=== PATIENT | male | born 1945 | race Caucasian/White ===

== ENCOUNTER 2016-12-27 08:42 | Outpatient (CLI) | payer MEDICARE, OTHER | END 2016-12-27 08:43 | disposition home or self-care (01) | DX: G47.33 Obstructive sleep apnea (adult) (pediatric) (principal) | CPT/HCPCS: 99214; G0463 ==

== ENCOUNTER 2017-03-24 13:53 | Outpatient (CLI) | payer OTHER, MEDICARE ==
--- NOTE | 2017-03-24 15:59 | MRI Report ---
EXAM: RIGHT KNEE MRI WITHOUT CONTRAST EXAM DATE: 03/24/2017 03:27 PM. CLINICAL HISTORY: RIGHT KNEE INJURY. COMPARISON: None. TECHNIQUE: Multiplanar, multisequence T1-weighted and fluid-sensitive sequences of the knee without c ontrast. Other: None. FINDINGS: Bones: No fractures or subluxations. Reactive marrow edema in the medial femoral condyle, medial tibi al plateau at the tibial attachment site of the PCL. No bone lesions. 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 Grade 3 degeneration with thinn ing and irregular surface in the trochlea and lateral femoral condyle. Medial Meniscus: A radial tear about 5 mm in width in the posterior horn of the medial meniscus near the meniscal root resulting in partial extrusion of the body of the meniscus from the joint. Lateral Meniscus: The lateral meniscus is intact. Cruciate Ligaments: Grade 2 sprain of the posterior cruciate ligament with diffusely mildly increased signal and mild thickening, without definite tear or laxity. The anterior cruciate ligament is intac t. Collateral Ligaments: The medial collateral and lateral collateral ligamentous structures are intact. Tendons: Mild patellar tendinopathy with mild increased signal proximally, without tear or laxity. Th e quadriceps, semimembranosus, and popliteus tendons are unremarkable. Musculature: No edema or fatty atrophy. Other: Mild effusion. A small popliteal cyst without rupture. No loose bodies. The medial and latera l retinacula, patellofemoral ligaments and iliotibial band are intact. No bursitis. There is a lobula mabel septated ganglion cyst deep to the popliteal vessels measuring 2.1 cm in width, 4.2 cm in AP dime nsion and 1.9 cm in height. The subcutaneous tissues and fat pads are unremarkable. IMPRESSION: 1. A radial tear about 5 mm in width in the posterior horn of the medial meniscus near the meniscal r oot. 2. Grade 2 sprain of the posterior cruciate ligament without definite tear or laxity. Reactive marrow edema in the medial tibial plateau at the tibial attachment site of the PCL. 3. Mild patellar tendinopathy without tear or laxity. 4. a lobulated septated ganglion cyst deep to the popliteal vessels measuring 2.1 cm in width, 4.2 cm in AP dimension and 1.9 cm in height. [facility] MUSCULOSKELETAL RADIOLOGY SECTION Referring Provider Line: [phone] SITE ID: [id number]
== END 2017-03-24 13:54 | disposition home or self-care (01) ==
LOC: DI 13:53
DX: S83.241A Other tear of medial meniscus, current injury, right knee, initial encounter (principal); S83.521A Sprain of posterior cruciate ligament of right knee, initial encounter; M67.461 Ganglion, right knee

== ENCOUNTER 2018-03-13 10:17 | Outpatient (CLI) | payer MEDICARE, OTHER | END 2018-03-13 10:18 | disposition home or self-care (01) | LOC: SC 10:17 | PROVIDERS: ATTEND Nurse Practitioner Family | DX: G47.33 Obstructive sleep apnea (adult) (pediatric) (principal); R06.00 Dyspnea, unspecified | CPT/HCPCS: 99214; G0463; 99212 ==

== ENCOUNTER 2018-05-23 14:48 | Emergency (ER) | payer MEDICARE, OTHER ==
[2018-05-23] MEDS ORDERED: HYDROmorphone 1 MG/ML CARPUJECT IVP STA (15:17)
--- NOTE | 2018-05-23 15:20 | ED Physician Documentation ---
PD HPI UPPER EXT INJURY - Stated complaint Stated Complaint: LF SHOULDER INJ - Chief complaint Chief Complaint: Trauma Ext - History obtained from History obtained from: Patient - History of Present Illness Location: Left, Shoulder Type of injury: Fall Where injury occurred: Other (dock) Timing - onset: How many hours ago (1) Timing - duration: Hours (1) Timing - details: Abrupt onset Pain level max: 8 Pain level now: 8 Improved by: Rest, Ice, Immobilization Worsened by: Moving, Palpating Associated symptoms: No: Weakness, Numbness, Tingling, Swelling Contributing factors: No: Anticoagulated Recently seen: Not recently seen - Additonal information Additional information: did not strike his head. no LOC. no vomiting. Review of Systems Ten Systems: 10 systems reviewed and negative Constitutional: denies: Fever, Chills Ears: denies: Ear pain Nose: denies: Rhinorrhea / runny nose, Congestion Throat: denies: Sore throat Cardiac: denies: Chest pain / pressure Respiratory: denies: Cough GI: denies: Nausea, Vomiting, Diarrhea Skin: denies: Rash Musculoskeletal: denies: Neck pain, Back pain Neurologic: denies: Focal weakness, Numbness, Headache, Head injury, LOC PD PAST MEDICAL HISTORY - Past Medical History Cardiovascular: Hypertension, High cholesterol Respiratory: CPAP use : Benign prostate hypertrophy Musculoskeletal: Chronic back pain - Present Medications Home Medications: Ambulatory Orders Medication Instructions Recorded Confirmed Atorvastatin Calcium [Lipitor] mg PO 04/09/15 04/09/15 Celecoxib [CeleBREX] 04/09/15 04/09/15 Rehmannia 8 tab ORAL QPM 04/09/15 04/09/15 Telmisartan [Micardis] mg PO 04/09/15 04/09/15 Triamcinolone Acetonide [Nasacort] 10.8 ml NS QPM 04/09/15 04/09/15 Hydrocodone/Acetaminophen 1 - 2 each PO Q6H PRN #14 tablet 05/23/18 [Hydrocodon-Acetaminophen 5-325] - Allergies Allergies/Adverse Reactions: Allergies Allergy/AdvReac Type Severity Reaction Status Date / Time No Known Drug Allergies Allergy Verified 04/09/15 12:02 - Social History Does the pt smoke?: No Smoking Status: Never smoker Does the pt drink ETOH?: No Does the pt have substance abuse?: No PD ED PE NORMAL - Vitals Vital signs reviewed: Yes - General General: Alert and oriented X 3, No acute distress - HEENT HEENT: Atraumatic, PERRL, Moist mucous membranes - Neck Neck: Supple, no meningeal sign, No bony TTP - Cardiac Cardiac: RRR - Respiratory Respiratory: No respiratory distress, Clear bilaterally - Back Back: No spinal TTP - Derm Derm: Warm and dry - Extremities Extremities: Other (L shoulder - TTP about the glenohumeral joint. NVI. deformity noted. 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, No motor deficit, No sensory deficit Eye Opening: Spontaneous Motor: Obeys Commands Verbal: Oriented GCS Score: 15 - Psych Psych: Normal mood, Normal affect Results - Vitals Vitals: Vital Signs - 24 hr 05/23/18 05/23/18 05/23/18 14:59 15:51 16:00 Temperature 36.4 C L Heart Rate 94 86 Respiratory 20 18 Rate Blood Pressure 165/100 H 165/100 H O2 Saturation 98 97 05/23/18 05/23/18 16:11 16:30 Temperature Heart Rate 63 78 Respiratory 16 16 Rate Blood Pressure 121/65 128/87 H O2 Saturation 97 96 Oxygen O2 Source Room air - Rads (name of study) L shoulder xray Radiology: Prelim report reviewed, EMP read contemporaneously, See rad report (inferior shoulder dislocation) post reduction L shoulder Radiology: Prelim report reviewed, EMP read contemporaneously, See rad report (succesful reduction) Procedures - Reduction Body part reduced: Left, Shoulder Fracture or dislocation: Dislocation Anesthesia: Dilaudid Shoulder reduction technique: Other (FARES) Reduction aftercare: NV intact, Xray confirms reduction, Alignment improved, Sling, Patient tolerated well PD MEDICAL DECISION MAKING - ED course Complexity details: reviewed results, re-evaluated patient, considered differential, d/w patient ED course: Patient is a 72-year-old male who presents to the emergency department after fall onto the left shoulder. Has a left shoulder dislocation. This was reduced successfully in the emergency department. Patient tolerated well. Neurovascularly intact including the axillary nerve. Placed in a sling for comfort we will have him follow-up with orthopedics for further evaluation. Patient counseled regarding signs and symptoms for which I believe and urgent re-evaluation would be necessary. Patient with good understanding of and agreement to plan and is comfortable going home at this time This document was made in part using voice recognition software. While efforts are made to proofread this document, sound alike and grammatical errors may occur. - Sepsis Event Vital Signs: Vital Signs - 24 hr 05/23/18 05/23/18 05/23/18 14:59 15:51 16:00 Temperature 36.4 C L Heart Rate 94 86 Respiratory 20 18 Rate Blood Pressure 165/100 H 165/100 H O2 Saturation 98 97 05/23/18 05/23/18 16:11 16:30 Temperature Heart Rate 63 78 Respiratory 16 16 Rate Blood Pressure 121/65 128/87 H O2 Saturation 97 96 Oxygen O2 Source Room air Departure - Departure Disposition: 01 Home, Self Care Clinical Impression: Dislocation of shoulder, left, closed Qualifiers: Encounter type: initial encounter Qualified Code(s): S43.005A - Unspecified dislocation of left shoulder joint, initial encounter Condition: Good Instructions: ED Dislocation Shoulder Redu Follow-Up: IZZY FELIPE DO [Primary Care Provider] - [facility] [Provider Group] - Within 1 week Prescriptions: Hydrocodone/Acetaminophen [Hydrocodon-Acetaminophen 5-325] 1 - 2 each PO Q6H PRN #14 tablet PRN Reason: pain Comments: Wear the sling as much as possible for the next week. Follow-up with orthopedics for further evaluation and care. Do not drink alcohol or drive while on narcotic pain medicine. Note that many narcotic pain relievers also contain tylenol/acetaminophen. Please ensure that your total dose of acetaminophen from all sources does not exceed 3 grams (3000mg) per day. You may constipated on this medication, take a stool softener such as "Colace" twice a day while you are on it. Also recommend a johu-hvw-[id number] laxative such as senna or MiraLAX any day that you do not have a bowel movement. If you received narcotic pain medication in the emergency department, do not drive or operate machinery for the next 24 hours. Discharge Date/Time: 05/23/18 16:58
[2018-05-23] MEDS ORDERED: ONDANSETRON 4 MG/2 ML VIAL IVP STA (16:06)
--- NOTE | 2018-05-23 16:40 | XRAY Report ---
Reason: post reduction Procedure Date: 05/23/2018 Accession Number: [id number] / [id number] Procedure: XR - Shoulder 2 View LT CPT Code: FULL RESULT: EXAM: LEFT SHOULDER RADIOGRAPHY EXAM DATE: 05/23/2018 04:24 PM. CLINICAL HISTORY: Post reduction. COMPARISON: Shoulder 3 view left 05/23/2018 3:21 PM. TECHNIQUE: 3 views. FINDINGS: Bones: Normal. No fracture or bone lesion. Joints: Bones now in anatomic alignment. Moderate degenerative changes at the AC joint. Soft tissues: The visualized hemithorax is unremarkable. No soft tissue swelling. IMPRESSION: Successful shoulder reduction. [facility]
[2018-05-23 16:58] VITALS: BP 128/87
--- NOTE | 2018-05-24 08:02 | XRAY Report ---
Reason: FALL, LEFT SHOULDER PAIN Procedure Date: 05/23/2018 Accession Number: [id number] / [id number] Procedure: XR - Shoulder 2 View LT CPT Code: FULL RESULT: IMPRESSION: Anterior inferior dislocation of the humeral head at the left glenohumeral joint. No definite acute fracture seen. Reevaluate for fracture on the postreduction x-ray. See above. [facility]
== END 2018-05-23 16:58 | disposition home or self-care (01) ==
LOC: ED 14:48
DX: S43.005A Unspecified dislocation of left shoulder joint, initial encounter (principal); W17.89XA Other fall from one level to another, initial encounter; Y92.62 Dock or shipyard as the place of occurrence of the external cause; I10 Essential (primary) hypertension; E78.00 Pure hypercholesterolemia, unspecified
CPT/HCPCS: 23650; 73030; 96374; 99283; 99284; J1170

== ENCOUNTER 2019-01-12 22:30 | Emergency (ER) | payer MEDICARE, OTHER ==
[2019-01-12] MEDS ORDERED: LIDOCAINE 2% URO-JET 5 ML SYRINGE UR STA (22:40)
--- NOTE | 2019-01-12 22:53 | ED Physician Documentation ---
History of Present Illness - Stated complaint Stated Complaint: MALE - Chief complaint Chief Complaint: Abd Pain - History obtained from History obtained from: Patient, Family - History of Present Illness Timing: Today Pain level max: 8 Pain level now: 8 - Additonal information Additional information: Patient had right knee surgery a few days ago at [facility]. A catheter was placed for noted significant hematuria. He is awaiting a urology referral. States the catheter stopped draining a few hours ago. Nothing makes it better or worse Review of Systems Constitutional: denies: Fever, Chills GI: denies: Vomiting Musculoskeletal: denies: Neck pain, Back pain Neurologic: denies: Headache PD PAST MEDICAL HISTORY - Past Medical History Cardiovascular: Hypertension, High cholesterol Respiratory: CPAP use : Benign prostate hypertrophy Musculoskeletal: Chronic back pain - Past Surgical History Past Surgical History: Yes General: Appendectomy Ortho: Carpal Tunnel surgery, Spine surgery - Present Medications Home Medications: Ambulatory Orders Medication Instructions Recorded Confirmed Atorvastatin Calcium [Lipitor] mg PO 04/09/15 04/09/15 Celecoxib [CeleBREX] 04/09/15 04/09/15 Rehmannia 8 tab ORAL QPM 04/09/15 04/09/15 Telmisartan [Micardis] mg PO 04/09/15 04/09/15 Triamcinolone Acetonide [Nasacort] 10.8 ml NS QPM 04/09/15 04/09/15 Hydrocodone/Acetaminophen 1 - 2 each PO Q6H PRN #14 tablet 05/23/18 [Hydrocodon-Acetaminophen 5-325] - Allergies Allergies/Adverse Reactions: Allergies Allergy/AdvReac Type Severity Reaction Status Date / Time No Known Drug Allergies Allergy Verified 01/12/19 22:38 - Social History Does the pt smoke?: No Smoking Status: Never smoker Does the pt drink ETOH?: No Does the pt have substance abuse?: No - Immunizations Immunizations are current?: Yes - POLST Patient has POLST: No PD ED PE NORMAL - Vitals Vital signs reviewed: Yes - General General: Alert and oriented X 3, No acute distress - HEENT HEENT: Moist mucous membranes - Neck Neck: Supple, no meningeal sign - Cardiac Cardiac: RRR - Respiratory Respiratory: No respiratory distress, Clear bilaterally - Abdomen Abdomen: Soft, Other (Tender to palpation suprapubic) - Derm Derm: Warm and dry - Neuro Neuro: Alert and oriented X 3 - Psych Psych: Normal mood, Normal affect Results - Vitals Vitals: Vital Signs - 24 hr 01/12/19 01/12/19 22:35 23:58 Temperature 36.2 C L Heart Rate 123 H 111 H Respiratory 16 16 Rate Blood Pressure 140/87 H 153/106 H O2 Saturation 94 98 Oxygen O2 Source Room air PD MEDICAL DECISION MAKING - ED course Complexity details: considered differential, d/w patient ED course: Patient with a clogged Horton catheter. The catheter was removed a new catheter placed which clogged immediately. A coud catheter was then introduced, a liter of urine was drained. A 18 Frisian catheter was then introduced irrigated with 50 mL's of saline which all drained back easily. Patient will go home with this catheter in place. We will follow-up with urology. Patient counseled regarding signs and symptoms for which I believe and urgent re-evaluation would be necessary. Patient with good understanding of and agreement to plan and is comfortable going home at this time This document was made in part using voice recognition software. While efforts are made to proofread this document, sound alike and grammatical errors may occur. Departure - Departure Disposition: 01 Home, Self Care Clinical Impression: Obstructed Horton catheter Qualifiers: Encounter type: initial encounter Qualified Code(s): T83.091A - Other mechanical complication of indwelling urethral catheter, initial encounter Condition: Good Instructions: ED Catheter Care Horton Follow-Up: [facility] [Provider Group] [facility] [Provider Group] Comments: Return if you worsen. Follow up with urology for further care. Discharge Date/Time: 01/13/19 00:00
[2019-01-13] VITALS: BP 153/106
== END 2019-01-13 | disposition home or self-care (01) ==
LOC: ED 22:30
DX: T83.091A Other mechanical complication of indwelling urethral catheter, initial encounter (principal); Y84.6 Urinary catheterization as the cause of abnormal reaction of the patient, or of later complication, without mention of misadventure at the time of the procedure; I10 Essential (primary) hypertension
CPT/HCPCS: 51703; 99283

== ENCOUNTER 2019-01-13 09:57 | Emergency (ER) | payer MEDICARE, OTHER ==
[2019-01-13] MEDS ORDERED: LIDOCAINE 2% URO-JET 5 ML SYRINGE UR STA (10:11)
--- NOTE | 2019-01-13 13:48 | ED Physician Documentation ---
PD HPI MALE - Stated complaint Stated Complaint: MALE /CATHETER ISSUE - Chief complaint Chief Complaint: General - History obtained from History obtained from: Patient, Family - History of Present Illness Timing - onset: Last night Timing - duration: Hours Timing - details: Gradual onset, Still present Associated symptoms: Horton problem Similar symptoms before: Diagnosis (urinary retention) Recently seen: Surgery - Additional information Additional information: 73-year-old male has had a right total knee replacement done at [facility] last week. Following his procedure he had urinary retention and required placement of a Horton catheter. This was done with great difficulty and required placement of a 14 British coud. The catheter was draining until yesterday evening and when they had no output from it that came to the hospital here and last night we were able to place a 14 coud and drained the bladder and following that a second catheter was placed and the patient has not had drainage from that second catheter. Review of Systems Constitutional: denies: Fever Eyes: denies: Decreased vision Ears: denies: Ear pain Nose: denies: Congestion Throat: denies: Sore throat Cardiac: denies: Chest pain / pressure, Palpitations Respiratory: denies: Dyspnea, Cough GI: denies: Abdominal Pain, Nausea, Vomiting : reports: Horton Problem (not draining feels bladder is full) PD PAST MEDICAL HISTORY - Past Medical History Cardiovascular: Hypertension, High cholesterol Respiratory: CPAP use : Benign prostate hypertrophy Musculoskeletal: Chronic back pain - Past Surgical History Past Surgical History: Yes General: Appendectomy Ortho: Knee replacement, Carpal Tunnel surgery, Spine surgery - Present Medications Home Medications: Ambulatory Orders Medication Instructions Recorded Confirmed Atorvastatin Calcium [Lipitor] mg PO 04/09/15 04/09/15 Celecoxib [CeleBREX] 04/09/15 04/09/15 Rehmannia 8 tab ORAL QPM 04/09/15 04/09/15 Telmisartan [Micardis] mg PO 04/09/15 04/09/15 Triamcinolone Acetonide [Nasacort] 10.8 ml NS QPM 04/09/15 04/09/15 Hydrocodone/Acetaminophen 1 - 2 each PO Q6H PRN #14 tablet 05/23/18 [Hydrocodon-Acetaminophen 5-325] - Allergies Allergies/Adverse Reactions: Allergies Allergy/AdvReac Type Severity Reaction Status Date / Time No Known Drug Allergies Allergy Verified 05/18/19 22:38 - Social History Does the pt smoke?: No Smoking Status: Never smoker Does the pt drink ETOH?: No Does the pt have substance abuse?: No - Immunizations Immunizations are current?: Yes - POLST Patient has POLST: No PD ED PE NORMAL - Vitals Vital signs reviewed: Yes (hypertensive ) - General General: Alert and oriented X 3, No acute distress, Well developed/nourished - HEENT HEENT: Atraumatic, PERRL, EOMI - Respiratory Respiratory: No respiratory distress - Abdomen Abdomen: Normal bowel sounds, Soft, Non tender, Other (suprapubic tenderness and fullness is not exquisit but present. ) - Derm Derm: Normal color, Warm and dry, No rash - Extremities Extremities: No deformity. No: Other (There is a dressing over the right knee anteriorly without surrounding erythema or swelling. There is no calf tenderness to palpation. 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, No motor deficit, No sensory deficit, Normal speech Eye Opening: Spontaneous Motor: Obeys Commands Verbal: Oriented GCS Score: 15 - Psych Psych: Normal mood, Normal affect Results - Vitals Vitals: Vital Signs - 24 hr 01/13/19 01/13/19 09:59 13:00 Temperature 36.3 C L Heart Rate 95 78 Respiratory 18 18 Rate Blood Pressure 141/71 H 127/75 O2 Saturation 94 91 L Oxygen O2 Source Room air PD MEDICAL DECISION MAKING - ED course Complexity details: reviewed old records, reviewed results, re-evaluated patient, considered differential, d/w patient, d/w family ED course: 73-year-old male with acute urinary retention has a clot present at the opening of the bladder on bedside ultrasound. We are not able to pass a catheter past this and despite multiple attempts and attempts at irrigation we are still not able to drain the bladder. Urology is consulted in the case they are unable to take the patient at [facility] secondary to no available beds. Dr. Adame at [facility] in [place] the urologist recommends transfer of the patient to the emergency department there for evaluation and treatment.The patient will go private auto to [facility] ED. Departure - Departure Disposition: 01 Home, Self Care Clinical Impression: Obstructed Horton catheter Qualifiers: Encounter type: subsequent encounter Qualified Code(s): T83.678C - Other me chanical complication of indwelling urethral catheter, subsequent encounter Condition: Stable Comments: Today your bladder is obstructed by a clot at the opening of the bladder and we are not able to pass a Horton catheter past this. Our recommendation this afternoon is to go directly to [facility] to the emergency department for further evaluation and treatment. The urologist Dr. Adame has been consulted in the case and will be available for your care. DO NOT EAT OR DRINK ON YOUR WAY TO THE HOSPITAL.
[2019-01-13 14:18] VITALS: BP 123/70
== END 2019-01-13 14:55 | disposition home or self-care (01) ==
LOC: ED 09:57
DX: T83.091A Other mechanical complication of indwelling urethral catheter, initial encounter (principal); Y84.6 Urinary catheterization as the cause of abnormal reaction of the patient, or of later complication, without mention of misadventure at the time of the procedure; R33.9 Retention of urine, unspecified; Z96.651 Presence of right artificial knee joint; I10 Essential (primary) hypertension
CPT/HCPCS: 51702; 51703; 99283

== ENCOUNTER 2019-01-28 19:39 | Emergency (ER) | payer MEDICARE, OTHER ==
[2019-01-28 21:33] LABS: BILIRUBIN,URINE NEGATIVE (NEGATIVE); GLUCOSE, URINE (UA) NEGATIVE (NEGATIVE); KETONES,URINE (UA) TRACE mg/dL (NEGATIVE); LEUKOCYTE ESTERASE, URINE MODERATE (NEGATIVE); NITRITE,URINE NEGATIVE (NEGATIVE); OCCULT BLOOD,URINE MODERATE (NEGATIVE); PH,URINE 5.5 PH (5.0-7.5); PROTEIN,URINE NEGATIVE (NEGATIVE); UROBILINOGEN,URINE 0.2 (NORMAL) E.U./dL (NORMAL)
[2019-01-28 21:40] LABS: CLARITY,URINE HAZY (CLEAR)
[2019-01-28 21:49] LABS: BACTERIA,URINE Many /HPF (None Seen); SQUAMOUS EPITHELIAL CELL,UR NONE SEEN (<= Few); WBC CLUMPS,URINE PRESENT
[2019-01-28 21:51] VITALS: BP 164/97
[2019-01-28] MEDS ORDERED: cefTRIAXone 1 GM VIAL IM STA (22:15)
[2019-01-28] MEDS ORDERED: LIDOCAINE 1% 2 ML VIAL MC ONE (22:15)
[2019-01-28 22:50] LABS: BASOPHILS # (AUTO) 0.1 10^3/uL (0.0-0.1); BASOPHILS % (AUTO) 0.4 %; EOSINOPHILS % (AUTO) 0.1 %; HGB - HEMOGLOBIN 12.4 g/dL (14.0-18.0); LYMPHOCYTES # (AUTO) 1.7 10^3/uL (1.5-3.5); LYMPHOCYTES % (AUTO) 10.6 %; MEAN CORPUSCULAR HEMOGLOBIN 30.8 pg (27.0-31.0); MEAN CORPUSCULAR HGB CONC 33.4 g/dL (32.0-36.0); MEAN CORPUSCULAR VOLUME 92.3 fL (80.0-94.0); MEAN PLATELET VOLUME 7.6 fL (7.4-11.4); MONOCYTES # (AUTO) 1.3 10^3/uL (0.0-1.0); MONOCYTES % (AUTO) 7.8 %; NEUTROPHILS # (AUTO) 13.4 10^3/uL (1.5-6.6); NEUTROPHILS % (AUTO) 81.1 %; PLT - PLATELET COUNT 272 10^3/uL (130-450); RED BLOOD COUNT 4.03 10^6/uL (4.70-6.10); RED CELL DISTRIBUTION WIDTH 13.4 % (12.0-15.0); WHITE BLOOD COUNT 16.5 x10^3/uL (4.8-10.8)
[2019-01-28 22:52] LABS: ALBUMIN 3.7 g/dL (3.2-5.5); ALBUMIN/GLOBULIN RATIO 1.1 (1.0-2.2); BILIRUBIN,TOTAL 1.4 mg/dL (0.2-1.0); CALCIUM 9.3 mg/dL (8.5-10.3); TOTAL PROTEIN 7.1 g/dL (6.7-8.2)
--- NOTE | 2019-01-28 23:07 | ED Physician Documentation ---
PD HPI MALE - Stated complaint Stated Complaint: MALE - Chief complaint Chief Complaint: Abd Pain - History obtained from History obtained from: Patient, Family - History of Present Illness Timing - onset: Today Timing - duration: Hours Timing - details: Gradual onset, Still present Associated symptoms: Unable to urinate PD HPI MALE CONTRIB FACTORS: Other (urinary retention) Similar symptoms before: Diagnosis (urinary retention) Recently seen: Admitted - Additional information Additional information: 73-year-old male with a recent history of urinary retention had a Hong catheter placed 2 weeks ago and today he went into see Dr. figueroa at the [facility] and had a voiding trial which he passed. He was able to urinate again and he went home. This afternoon he began to feel symptoms of retention in the scene when he comes into the emergency department with retention. He indicates that throughout the day today he has felt achy and a bit sick. Review of Systems Constitutional: reports: Chills, Myalgias, Fatigue. denies: Fever Eyes: denies: Decreased vision Ears: denies: Ear pain Nose: denies: Rhinorrhea / runny nose, Congestion Throat: denies: Sore throat Cardiac: denies: Chest pain / pressure, Palpitations Respiratory: denies: Dyspnea, Cough GI: denies: Abdominal Pain, Nausea, Vomiting : reports: Unable to Void Skin: denies: Rash Musculoskeletal: denies: Neck pain, Back pain, Extremity pain Neurologic: denies: Generalized weakness, Focal weakness, Numbness PD PAST MEDICAL HISTORY - Past Medical History Cardiovascular: Hypertension, High cholesterol Respiratory: CPAP use : Benign prostate hypertrophy Musculoskeletal: Chronic back pain - Past Surgical History Past Surgical History: Yes General: Appendectomy Ortho: Knee replacement, Carpal Tunnel surgery, Spine surgery - Present Medications Home Medications: Ambulatory Orders Medication Instructions Recorded Confirmed Atorvastatin Calcium [Lipitor] mg PO 04/09/15 04/09/15 Celecoxib [CeleBREX] 04/09/15 04/09/15 Rehmannia 8 tab ORAL QPM 04/09/15 04/09/15 Telmisartan [Micardis] mg PO 04/09/15 04/09/15 Triamcinolone Acetonide [Nasacort] 10.8 ml NS QPM 04/09/15 04/09/15 Hydrocodone/Acetaminophen 1 - 2 each PO Q6H PRN #14 tablet 05/23/18 [Hydrocodon-Acetaminophen 5-325] Levofloxacin [Levaquin] 500 mg PO DAILY #7 tablet 01/28/19 - Allergies Allergies/Adverse Reactions: Allergies Allergy/AdvReac Type Severity Reaction Status Date / Time No Known Drug Allergies Allergy Verified 01/28/19 19:53 - Social History Does the pt smoke?: No Smoking Status: Never smoker Does the pt drink ETOH?: No Does the pt have substance abuse?: No - Immunizations Immunizations are current?: Yes - POLST Patient has POLST: No PD ED PE NORMAL - Vitals Vital signs reviewed: Yes (tachy and hypertensive ) - General General: Alert and oriented X 3, No acute distress, Well developed/nourished, Other (examined after bladder has been emptied) - HEENT HEENT: Atraumatic, PERRL, EOMI - Neck Neck: Supple, no meningeal sign, No bony TTP - Cardiac Cardiac: No murmur, Other (tachy to 100) - Respiratory Respiratory: No respiratory distress, Clear bilaterally - Abdomen Abdomen: Soft, Non tender - Back Back: No CVA TTP, No spinal TTP - Derm Derm: Normal color, Warm and dry, No rash - Extremities Extremities: No deformity, No edema, No calf tenderness / cord - Neuro Neuro: Alert and oriented X 3, 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, No motor deficit, No sensory deficit, Normal speech Eye Opening: Spontaneous Motor: Obeys Commands Verbal: Oriented GCS Score: 15 - Psych Psych: Normal mood, Normal affect Results - Vitals Vitals: Vital Signs - 24 hr 01/28/19 01/28/19 19:45 21:50 Temperature 36.3 C L Heart Rate 120 H 91 Respiratory 22 18 Rate Blood Pressure 119/87 H 164/97 H O2 Saturation 96 98 Oxygen O2 Source Room air - Labs Labs: Laboratory Tests 01/28/19 01/28/19 01/28/19 21:25 22:30 22:30 WBC 16.5 H RBC 4.03 L Hgb 12.4 L Hct 37.2 L MCV 92.3 MCH 30.8 MCHC 33.4 RDW 13.4 Plt Count 272 MPV 7.6 Neut # (Auto) 13.4 H Lymph # (Auto) 1.7 Patrick # (Auto) 1.3 H Eos # (Auto) 0.0 Baso # (Auto) 0.1 Absolute Nucleated RBC 0.00 Nucleated RBC % 0.0 Sodium 135 Potassium 4.1 Chloride 99 L Carbon Dioxide 23 Anion Gap 13.0 BUN 17 Creatinine 1.0 Estimated GFR (MDRD) 73 L Glucose 117 H Calcium 9.3 Total Bilirubin 1.4 H AST 20 ALT 19 Alkaline Phosphatase 76 Total Protein 7.1 Albumin 3.7 Globulin 3.4 Albumin/Globulin Ratio 1.1 Lipase 24 Urine Color YELLOW Urine Clarity HAZY Urine pH 5.5 Ur Specific [place] 1.010 Urine Protein NEGATIVE Urine Glucose (UA) NEGATIVE Urine Ketones TRACE Urine Occult Blood MODERATE H Urine Nitrite NEGATIVE Urine Bilirubin NEGATIVE Urine Urobilinogen 0.2 (NORMAL) Ur Leukocyte Esterase MODERATE H Urine RBC 11-25 H Urine WBC >25 H Urine WBC Clumps PRESENT Ur Squamous Epith Cells NONE SEEN Urine Bacteria Many H Ur Microscopic Review INDICATED Urine Culture Comments INDICATED PD MEDICAL DECISION MAKING - ED course Complexity details: reviewed old records, reviewed results, re-evaluated patient, considered differential, d/w patient, d/w family ED course: 73-year-old male with acute urinary tension has a Hong catheter placed urine appears infected he is administered Rocephin 1 g IM and we will place him on some Levaquin. He request blood work be done as he has had acute kidney injury associated with this urinary retention when he was in the hospital at [place] in [place]. Of note we did not obtain urine on his prior visit as we were not able to get a hong in. He had to be transferred to [place] to see Dr. Aj. And we did not obtain blood work on his prior visit. Today his blood work is reassuring with resolution of acute kidney injury. Departure - Departure Disposition: 01 Home, Self Care Clinical Impression: Urinary retention Urinary tract infection Qualifiers: Urinary tract infection type: catheter-associated UTI Indwelling urinary catheter type: indwelling urethral catheter Encounter type: initial encounter Qualified Code(s): T83.511A - Infection and inflammatory reaction due to indwelling urethral catheter, initial encounter Condition: Stable Instructions: ED Catheter Care Hong, ED Retention Urinary Male, ED UTI Cystitis Male Follow-Up: IZZY FELIPE DO [Primary Care Provider] - KOMAL FIGUEROA [Physician No Access] - Prescriptions: Levofloxacin [Levaquin] 500 mg PO DAILY #7 tablet
== END 2019-01-28 23:46 | disposition home or self-care (01) ==
LOC: ED 19:39
DX: T83.511A Infection and inflammatory reaction due to indwelling urethral catheter, initial encounter (principal); I10 Essential (primary) hypertension; Z87.448 Personal history of other diseases of urinary system
CPT/HCPCS: 36415; 51702; 80053; 81001; 81003; 83690; 85025; 87086; 87181; 96372; 99283

== ENCOUNTER 2019-02-26 15:28 | Outpatient (CLI) | payer MEDICARE, OTHER | END 2019-02-26 15:29 | disposition home or self-care (01) | LOC: SC 15:28 | PROVIDERS: ATTEND Nurse Practitioner Family | DX: G47.33 Obstructive sleep apnea (adult) (pediatric) (principal) | CPT/HCPCS: 99214; G0463; 99212 ==

== ENCOUNTER 2019-05-27 16:17 | Outpatient (CLI) | payer MEDICARE, OTHER ==
--- NOTE | 2019-05-27 17:46 | SLEEP CARE CONSULTATION ---
Information from patient questionnaire entered by Marina Haq. I have reviewed and concur with the information entered by Marina Haq. This document represents the service I personally performed and the decisions made by me, Janey Akhtar, RN, MSN, JAVA MA[employer]GER. History of Present Illness Previous diagnosis: Severe, Obstructive Sleep Apnea-Hypopnea Syndrome AHI: 35.3 Reason for CPAP/BiPAP follow up: first compliance after device update Equipment type: CPAP Equipment obtained from: [employer] Mask style: Nasal pillows Mask brand: Respironics Backup mask available: Yes Last cushion change: a couple of weeks ago Prior sleep studies: Yes Year and Where: 2013 [facility] CPAP Compliance Data - Data Reviewed with Patient Average duration of nightly device use: 8H 47M Compliance rate %: 100 Current pressure setting (cmH2O): 10 Humidity settin Heated hose settin Average residual AHI: 4.5 Average large leak: 18 minutes Subjective Patient concerns: reports: nasal congestion (reduced with use of humidity. ). denies: aerophagia, mask discomfort, air blowing in eyes, mask leak noise (new mask has less mask leaks into eyes ), condensation in mask/hose, dry mouth, nose, throat, epistaxis Observed to snore while using device: No Current pressure setting perceived as: too low (intermittently / feels might be due to new mask position) On therapy, patient: reports: sleeping better, awakening more refreshed, being more awake and alert during the day, more rested overall. denies: drowsiness while driving Initial [place] Sleepiness Scale score: 11 Current [place] Sleepiness Scale score: 3 Allergies and Home Medications Allergy and home medication list: ```````````````````````````````````````Medication Name (generic/name brand) Strength & Dosage Toprol XL 25mg tab one daily Vistaril 25mg tab as needed for spasms Aliyah 40mg tab one daily Protonix 40mg tab one daily Atorvastatin 20mg tab one daily Micardis 20mg tab one daily Flomax 0.4mg tab one daily Aspirin 81mg tab one daily Nasocort Nasal spray daily Tylenol prn Flexeril 10mg prn 3 times a day Review of Systems Review of systems same as previous: No (Flexeril added for right hip muscle spasms) Physical Exam Blood Pressure: 140/76 Cuff size: long Heart Rate: 63 O2 Saturation: 93 Weight: 307 lb Impression and Plan 1. Obstructive Sleep Apnea-Hypopnea Syndrome, severe, with good treatment compliance and good apnea control on updated CPAP. On CPAP therapy, the patient has better sleep quality and is more rested overall. His nasal congestion is less with use of low humidity. The new mask is more comfortable. However, the new CPAP seems noisier than his old CPAP. Thus I will have checked for malfunction. Since he is now taking a muscle relaxant with slight elevation of AHI as well as occasional feeling of inadequate air, I will change his CPAP to autoCPAP [id number]. He is to contact me if any discomfort from pressure change. Because of complaint of new mask having inadequate air intermittently unless adjusts lower, he is advised to adjust headgear which will also reduce any mask leaks. He does not want to try a CPAP pillow to reduce mask leaks. He is also advised to check to see if previous mask style seems to deliver more air before pressure changed. Patient's apnea severity and rationale for treatment to reduce apnea, improve sleep quality and reduce cardiovascular and cerebrovascular events was reviewed. I also reviewed the benefit of consistent device use of CPAP for his hypertension, gastric reflux. * Change CPAP pressure to [id number] * Check new CPAP for malfunction * Notify me if snoring with mask or feeling that the pressure is too much or too little * Attempt to lose weight * Return for follow up in 1 year , or sooner if concerns arise I spent 100% of this 25 minute visit face to face with the patient with greater than 50% of this was spent time counseling the patient and coordination of care.
[2019-05-27 17:47] VITALS: BP 140/76
== END 2019-05-27 16:18 | disposition home or self-care (01) ==
LOC: SC 16:17
PROVIDERS: ATTEND Nurse Practitioner Family
DX: G47.33 Obstructive sleep apnea (adult) (pediatric) (principal)
CPT/HCPCS: 99212; 99214

== ENCOUNTER 2020-05-19 12:08 | Outpatient (CLI) | payer MEDICARE, OTHER ==
--- NOTE | 2020-05-19 12:29 | SLEEP CARE CONSULTATION ---
Information from patient questionnaire entered by Luda Everett. I have reviewed and concur with the information entered by Ldua Everett. This document represents the service I personally performed and the decisions made by me, Ciarra Muir MD, [facility]. History of Present Illness Service Date and Time: 05/19/2020 1208 Previous diagnosis: Severe, Obstructive Sleep Apnea-Hypopnea Syndrome AHI: 35.3 (in 2013) Reason for follow up: annual (last seen 2018) Equipment type: CPAP Equipment obtained from: [employer] Mask style: Nasal pillows Prior sleep studies: Yes Year and Where: 2013 - [facility] HPI additional information: To minimize the risk of COVID-19 exposure, the patient has requested and consented to this telephone visit. The patient also agrees to having his insurance billed. HPI: Mr. Alberts was diagnosed to have severe (AHI 35.3) obstructive sleep apnea-hypopnea syndrome in 2013 and returned today for his annual follow up of CPAP therapy. The patient wears a Respironics Nuance nasal pillows. He reports using the device nightly and all through the night. The compliance report shows usage in 180 nights out of the past 180 nights, averaging 8.5 hours a night. The > 4 hour compliance rate for the past year is 100%. He complained of the headgear flattening his hair but no particular problem with the device such as soreness on the face, dry nose, epistaxis, nasal congestion or headache. He thinks that the pressure of 10 12 cmH2O is comfortable. On the CPAP therapy he notices improvement in his sleep quality, and that he wakes up feeling fresher in the morning and more awake/alert during the day. His notices no snore at all. The average residual AHI is 6.2; and average time in large leak per day is 30 seconds. The 90th percentile pressure is 11.3 cmH2O. Sleep Study - Results Prior sleep studies: Yes Year and Where: 2013 [facility] CPAP Compliance Data - Data Reviewed with Patient Average duration of nightly device use: 8.5 Compliance rate %: 100 (180 days) Current pressure setting (cmH2O): 10-12 Humidity settin Heated hose settin Average residual AHI: 6.2 Average large leak: 30 sec Subjective Initial [place] Sleepiness Scale score: 11 (in 2014) Allergies and Home Medications Drug allergies reviewed: Yes Home medication list reviewed: Yes Review of Systems Review of systems same as previous: Yes Physical Exam Height: 5 ft 11 in Impression and Plan IMPRESSION: 1. Obstructive Sleep Apnea-Hypopnea Syndrome, severe, with the patient doing well on nasal CPAP therapy. He has excellent compliance and significant clinica l improvement. The current pressure appears effective and comfortable. His mask fits well. Overall, he is very satisfied with treatment and plans to continue with it long-term. Because the residual AHI is elevated, I will raise the pressure range to 10 15 cmH2O. PLAN: 1. Increase autoCPAP to 10 - 15 cmH2O. 2. Try to lose weight 3. Try ResMed P-10 nasal pillows or ResMed Banda FX with Carmela headgear. 4. Return for a follow up in 2 months to recheck the residual AHI value. I spent 100% of the 10 minute phone call with the patient with greater than 50% of this spent counseling the patient and coordination of care. Follow up with Sleep Care in: 1-2 months Visit Type: Telehealth Phone Patient Location: Home Location of Provider: Office Patient agrees and consents to this telehealth visit type: Yes Patient agrees to have their insurance billed: Yes Time Spent with Patient (minutes): 10 Provider Statement: I spent 100% of the Telehealth Phone Call with the patient with greater than 50% spent counseling the patient and coordination of care.
== END 2020-05-19 12:09 | disposition home or self-care (01) ==
LOC: SC 12:08
PROVIDERS: ATTEND Internal Medicine Pulmonary Disease
DX: G47.33 Obstructive sleep apnea (adult) (pediatric) (principal)

== ENCOUNTER 2020-07-21 09:51 | Outpatient (CLI) | payer MEDICARE, OTHER ==
--- NOTE | 2020-07-21 10:00 | SLEEP CARE CONSULTATION ---
Information from patient questionnaire entered by Luda Everett. I have reviewed and concur with the information entered by Luda Everett. This document represents the service I personally performed and the decisions made by me, Ciarra Muir MD, [facility]. History of Present Illness Service Date and Time: 07/21/2020 0951 Previous diagnosis: Severe, Obstructive Sleep Apnea-Hypopnea Syndrome AHI: 35.3 (in 2013) Reason for follow up: other (2 month with pressure change) Equipment type: CPAP Equipment obtained from: [employer] Mask style: Nasal pillows Prior sleep studies: Yes Year and Where: 2013 - [facility] Type of Sleep Study: Polysomnography HPI additional information: To minimize the risk of COVID-19 exposure, the patient has requested and consented to this telephone visit. The patient also agrees to having his insurance billed. HPI: Mr. Alberts was diagnosed to have severe (AHI 35.3) obstructive sleep apnea-hypopnea syndrome in 2013 and was called today for his follow up of CPAP therapy. The patient wears Respironics Nuance nasal pillows. He reports using the device nightly and all through the night. The compliance report shows usage in 60 nights out of the past 60 nights, averaging 8.6 hours a night. The > 4 hour compliance rate for the past year is 100%. He complained of congestion. He has the heated humidifier set at 1 and tube heat at 0. He thinks that the pressure of 10 15 cmH2O is more comfortable than the previous lower pressure. On the CPAP therapy he notices improvement in his sleep quality, and that he wakes up feeling fresher in the morning and more awake/alert during the day. His notices no snore at all. The average residual AHI is 3.6 (was 6.2); and average time in large leak per day is 1 minute. The 90th percentile pressure is 11.3 cmH2O. CPAP Compliance Data - Data Reviewed with Patient Average duration of nightly device use: 8 hr 35 min Compliance rate %: 100 (60 days) Current pressure setting (cmH2O): 10-15 Humidity settin Heated hose settin Average residual AHI: 3.6 Average large leak: 1 min 43 sec Subjective Initial [place] Sleepiness Scale score: 11 (in 2013) Allergies and Home Medications Drug allergies reviewed: Yes Home medication list reviewed: Yes Review of Systems Review of systems same as previous: Yes Physical Exam Height: 5 ft 11 in Impression and Plan IMPRESSION: 1. Obstructive Sleep Apnea-Hypopnea Syndrome, severe, with the patient continuing to do well on nasal CPAP therapy. He has excellent compliance and significant clinical improvement. The current pressure appears effective and comfortable. His mask fits well. Overall, he is very satisfied with treatment and plans to continue with it long-term. Because he feels better with the higher pressure range, I will raise it slightly further to 11 15 cmH2O. PLAN: 1. Increase autoCPAP to 11 - 15 cmH2O via the modem. 2. Try to lose weight 3. Raise the heated humidifier and tube heat for congestion. 4. Return for follow up in a year or earlier if there is any problem. Visit Type: Telehealth Phone Patient Location: Home Location of Provider: Office Patient agrees and consents to this telehealth visit type: Yes Patient agrees to have their insurance billed: Yes Time Spent with Patient (minutes): 10 Provider Statement: I spent 100% of the Telehealth Phone Call with the patient with greater than 50% spent counseling the patient and coordination of care.
== END 2020-07-21 09:52 | disposition home or self-care (01) ==
LOC: SC 09:51
PROVIDERS: ATTEND Internal Medicine Pulmonary Disease
DX: G47.33 Obstructive sleep apnea (adult) (pediatric) (principal)

== ENCOUNTER 2021-08-30 10:34 | Outpatient (CLI) | payer MEDICARE, OTHER ==
--- NOTE | 2021-08-31 21:39 | SLEEP CARE CONSULTATION ---
Information from patient questionnaire entered by Harinder Lan MA. I have reviewed and concur with the information entered by Harinder Lan MA. This document represents the service I personally performed and the decisions made by me, Ciarra Muir MD, [facility]. History of Present Illness Service Date and Time: 08/30/2021 1034 Previous diagnosis: Severe, Obstructive Sleep Apnea-Hypopnea Syndrome AHI: 35.3 (in 2013) Reason for follow up: annual (LAST SEEN, 06/2020) Equipment type: CPAP Equipment obtained from: [employer] Mask style: Nasal pillows Prior sleep studies: Yes Year and Where: 2013 - [facility] Type of Sleep Study: Polysomnography HPI additional information: Mr. Alberts was diagnosed to have severe (AHI 35.3) obstructive sleep apnea- hypopnea syndrome in 2013 and was called today for his follow up of CPAP therapy. The patient wears Respironics Nuance nasal pillows. He reports using the device nightly and all through the night. The compliance report shows usage in 180 nights out of the past 180 nights, averaging 8.6 hours a night. The > 4 hour compliance rate for the past year is 100%. He complained of congestion. He has the heated humidifier set at 1 and tube heat at 0. He thinks that the pressure of 11 15 cmH2O is more comfortable than the previous lower pressure. On the CPAP therapy he notices improvement in his sleep quality, and that he wakes up feeling fresher in the morning and more awake/alert during the day. His notices no snore at all. The average residual AHI is 3.8; and average time in large leak per day is 25 (was 1) minute. The 90th percentile pressure is 11.3 cmH2O. He has not gotten any supplies for two years now from [employer]. Sleep Study - Results Type of Sleep Study: Polysomnography Prior sleep studies: Yes Year and Where: 2013 - [facility] CPAP Compliance Data - Data Reviewed with Patient Average duration of nightly device use: 8 HOURS 3 MINUTES Compliance rate %: 100 Current pressure setting (cmH2O): 11-15 Humidity settin Heated hose settin Average residual AHI: 3.8 Average large leak: 25 MINUTES 32 SECONDS Subjective Initial [place] Sleepiness Scale score: 11 (in 2013) Allergies and Home Medications Drug allergies reviewed: Yes Home medication list reviewed: Yes Review of Systems Review of systems same as previous: Yes Physical Exam Vital signs obtained and entered by: CHAPO SOW Height: 5 ft 11 in Impression and Plan IMPRESSION: 1. Obstructive Sleep Apnea-Hypopnea Syndrome, severe, with the patient continuing to do well on nasal CPAP therapy. He has excellent compliance and significant clinical improvement. The current pressure appears effective and comfortable. His mask fits well. Overall, he is very satisfied with treatment and plans to continue with it long-term. He has already registered his Respironics DreamStation device with [employer]. PLAN: 1. Leave autoCPAP at 11 - 15 cmH2O. 2. Prescription made for supplies and sent to [employer]. 3. He may purchase a bacterial filter online to help block any debris from the CPAP. 4. Return for follow up in a year or earlier if there is any problem. Prescriptions: Device supplies Follow up with Sleep Care in: 1 year Visit Type: Telehealth Video Time Spent with Patient (minutes): 15 Provider Statement: I spent 100% of the Telehealth Video Call with the patient with greater than 50% spent counseling the patient and coordination of care.
== END 2021-08-30 10:35 | disposition home or self-care (01) ==
LOC: SC 10:34
PROVIDERS: ATTEND Internal Medicine Pulmonary Disease
DX: G47.33 Obstructive sleep apnea (adult) (pediatric) (principal)

== ENCOUNTER 2022-10-10 16:21 | Outpatient (CLI) | payer MEDICARE, OTHER ==
[2022-10-10 22:12] VITALS: BP 130/75
--- NOTE | 2022-10-10 22:12 | SLEEP CARE CONSULTATION ---
Information from patient questionnaire entered by Nevin Perez. I have reviewed and concur with the information entered by Nevin Perez. This document represents the service I personally performed and the decisions made by me, Ciarra Muir MD, [facility]. History of Present Illness Service Date and Time: 10/10/2022 1621 Previous diagnosis: Severe, Obstructive Sleep Apnea-Hypopnea Syndrome AHI: 35.3 (in 2013) Reason for follow up: annual (LAST SEEN 08/2021) Equipment type: CPAP (MOTA) Equipment obtained from: [employer] Mask style: Nasal pillows Prior sleep studies: Yes Year and Where: 2013 - [facility] Type of Sleep Study: Polysomnography HPI additional information: Mr. Alberts was diagnosed to have severe (AHI 35.3) obstructive sleep apnea- hypopnea syndrome in 2013 and returns today for his follow up of CPAP therapy. The patient wears Respironics Nuance nasal pillows. He reports using the [employer] Respironics DreamStation 2 nightly and all through the night. The compliance report shows usage in 177 nights out of the past 180 nights, averaging 8.3 hours a night. The > 4 hour compliance rate for the past year is 98%. He complained of nasal congestion. He has the heated humidifier set at 1 and tube heat at 0. He thinks that the pressure of 11 15 cmH2O is more comfortable than the previous lower pressure. On the CPAP therapy he notices improvement in his sleep quality, and that he wakes up feeling fresher in the morning and more awake/alert during the day. His notices no snore at all. The average residual AHI is 5.8 (4.9 the past 2 months); and average time in large leak per day is 5 (was 25) minutes. The 90th percentile pressure is 12.7 cmH2O. [employer] is his durable medical supplier. Sleep Study - Results Type of Sleep Study: Polysomnography Prior sleep studies: Yes Year and Where: 2013 - [facility] CPAP Compliance Data - Data Reviewed with Patient Average duration of nightly device use: 8HRS 15MIN 25SEC Compliance rate %: 98.3 (04/09/22-10/05/22) Current pressure setting (cmH2O): 11-15 Average residual AHI: 5.8 Subjective Initial [place] Sleepiness Scale score: 11 (in 2013) Current [place] Sleepiness Scale score: 5 (10-10-22) Allergies and Home Medications Drug allergies reviewed: Yes Home medication list reviewed: Yes Allergy and home medication list: Allergies No Known Drug Allergies Allergy (Verified 01/28/19 19:53) Review of Systems Review of systems same as previous: Yes Physical Exam Vital signs obtained and entered by: VIA LOWELL León MA Blood Pressure: 130/75 (PER PT) Height: 5 ft 11 in (PER PT) Weight: 282 lb (PER PT) Body Mass Index: 39.3 BMI Classification: Obese Impression and Plan IMPRESSION: 1. Obstructive Sleep Apnea-Hypopnea Syndrome, severe, with the patient continuing to do well on nasal CPAP therapy. He has excellent compliance and significant clinical improvement. The current pressure setting appears effective and comfortable. His mask fits well. Overall, he is very satisfied with treatment and plans to continue with it long-term. PLAN: 1. Lower ramp to 7 cmH2O per patients request. Leave autoCPAP at 11 - 15 cmH2 O. 2. Patient to increase the heated humidifier as needed. 3. Return for follow up in a year or earlier if there is any problem. Continue with device pressure at (cmH2O): 11 - 15 cmH20 Follow up with Sleep Care in: 1 year Visit Type: Telehealth Phone Patient Location: Home Location of Provider: Office Patient agrees and consents to this telehealth visit type: Yes Patient agrees to have their insurance billed: Yes Time Spent with Patient (minutes): 20 Provider Statement: I spent 100% of the Telehealth Phone Call with the patient with greater than 50% spent counseling the patient and coordination of care.
== END 2022-10-10 16:22 | disposition home or self-care (01) ==
LOC: SC 16:21
PROVIDERS: ATTEND Internal Medicine Pulmonary Disease
DX: G47.33 Obstructive sleep apnea (adult) (pediatric) (principal); E66.9 Obesity, unspecified; Z68.39 Body mass index [BMI] 39.0-39.9, adult
CPT/HCPCS: 99212; G0463

== ENCOUNTER 2023-07-09 15:50 | Emergency (ER) | payer MEDICARE, OTHER ==
[2023-07-09] MEDS ORDERED: oxyCODONE 5 MG TABLET PO STA (16:16)
--- NOTE | 2023-07-09 16:19 | ED Physician Documentation ---
History of Present Illness - Stated complaint Stated Complaint: LT LEG INJ - Chief complaint Chief Complaint: Trauma Ext - Additonal information Additional information: 77-year-old male presents emergency department for evaluation of acute left leg pain, left elbow skin tear. Patient reports that he was going down the steps at his home when he missed the last stair he fell backwards. In the process of this he hyperextended his foot and ankle and felt like he saw a moment where the bone was about to protrude through the ankle. Since then unable to bear weight. He did place an ice pack on it for about 90 minutes. He has a large skin tear/abrasion of the lateral elbow. He is not anticoagulated. No head strike or loss of consciousness. Denying pain outside of the left elbow and leg. Review of Systems Skin: reports: Abrasion (s) Musculoskeletal: reports: Extremity pain, Joint pain Neurologic: reports: Reviewed and negative Psychiatric: reports: Reviewed and negative PD PAST MEDICAL HISTORY - Past Medical History Past Medical History: Yes Cardiovascular: Hypertension, High cholesterol Respiratory: CPAP use : Benign prostate hypertrophy Musculoskeletal: Chronic back pain - Past Surgical History Past Surgical History: Yes General: Appendectomy Ortho: Knee replacement, Carpal Tunnel surgery, Spine surgery - Present Medications Home Medications: Ambulatory Orders Medication Instructions Recorded Confirmed Telmisartan [Micardis] mg PO 04/09/15 04/09/15 Triamcinolone Acetonide [Nasacort] 10.8 ml NS QPM 04/09/15 04/09/15 Acetaminophen [Pain Relief Extra See Rx Instructions .ROUTE .COMPLEX 10/10/22 10/10/22 Strength] Ascorbic Acid [Vitamin C] See Rx Instructions .ROUTE .COMPLEX 10/10/22 10/10/22 Aspirin [Aspirin EC] See Rx Instructions .ROUTE .COMPLEX 10/10/22 10/10/22 Cholecalciferol [Vitamin D3] See Rx Instructions .ROUTE .COMPLEX 10/10/22 10/10/22 Ginkgo Biloba Sargent Extract [Ginkgo See Rx Instructions .ROUTE .COMPLEX 10/10/22 10/10/22 Biloba] Licopene 10/10/22 Magnesium See Rx Instructions .ROUTE .COMPLEX 10/10/22 10/10/22 Tamsulosin HCl [Flomax] 10/10/22 Zinc Gluconate [Zinc] See Rx Instructions .ROUTE .COMPLEX 10/10/22 10/10/22 oxyCODONE [Roxicodone] 5 mg PO TID PRN #20 tablet 07/09/23 - Allergies Allergies/Adverse Reactions: Allergies Allergy/AdvReac Type Severity Reaction Status Date / Time No Known Drug Allergies Allergy Verified 07/09/23 16:06 - Social History Does the pt smoke?: No Smoking Status: Never smoker Does the pt drink ETOH?: No Does the pt have substance abuse?: No - Immunizations Immunizations are current?: Yes - POLST Patient has POLST: No PD ED PE EXPANDED - General General: Alert, No acute distress - HEENT HEENT: Atraumatic - Extremities Extremities: Left elbow (Skin tear of the lateral elbow just below the humeral region with some surrounding ecchymosis. Normal flexion extension of the elbow. Normal pronation supination. Neurovascular intact distally.), Left knee (Normal flexion extension. No laxity. No obvious deformity. No pain over the patella or head of the fibula/tibia. ), Left ankle (Grossly swollen and ecchymotic left ankle without obvious deformity. 1+ DP pulse. Limited range of motion secondary to pain. Most the tenderness is elicited medially as well as on the dorsum of the foot just distal to the ankle joint.) Results - Vitals Vitals: Vital Signs - 24 hr 07/09/23 15:59 Temperature 36.9 C Heart Rate 60 Respiratory 15 Rate Blood Pressure 152/83 H O2 Saturation 95 Oxygen O2 Source Room air - Rads (name of study) left ankle xr Relevant Findings:: Final report received (Widening of the medial mortise reflects at least ligamental injury. No radiographic evidence of fracture. Consider follow-up MRI evaluation.) left tib fib/knee Relevant Findings:: Final report received (Oblique proximal tibial diaphyseal fracture. With minimal displacement.) left elbow Relevant Findings:: Final report received (Unremarkable left elbow radiographs.) PD Medical Decision Making - ED course Complexity details: reviewed results, re-evaluated patient, d/w patient, d/w family ED course: 77-year-old male presents emergency department for evaluation of acute left leg injury and left elbow abrasion. He missed the last step at his home and fell backwards hyperextending the foot. He feels like he may have dislocated the ankle. On presentation he has moderate tenderness of the mid llamas and around the ankle joint. He also has an obvious skin tear/abrasion of the left elbow. Patient is unable to bear weight on the left leg. He was given a single dose of oxycodone 5 mg with good therapeutic relief of pain. X-ray imaging included left elbow, knee, tib-fib and ankle. Per radiologist the only obvious finding is that of an oblique left proximal tibial fracture. There is widening of the medial ankle joint suggesting at least ligamentous injury. Patient was placed in a knee immobilizer here in the emergency department. He was able to ambulate adequately and safely using the crutches. He does have orthopedist Dr. Ponce at [facility] whom he will follow-up with. He is advised to be nonweightbearing on this leg until seen by orthopedist. He may likely need an MRI of the ankle though not indicated today. Patient is discharged home in stable condition with usual emergent return precautions discussed. I am prescribing a short course of short-acting opioid pain medication for this patient. I have reviewed the patients TRIAL JUSTICE and no concerning findings were noted. I have discussed that the opioids are for short term therapy only, and will not be refilled from the ED. Departure - Departure Disposition: Home, Self Care Clinical Impression: Skin tear of left elbow without complication Qualifiers: Encounter type: initial encounter Qualified Code(s): S51.012A - Laceration without foreign body of left elbow, initial encounter Fracture, fibula, proximal Qualifiers: Fracture type: closed Fracture morphology: unspecified fracture morphology Laterality: left Fracture healing: with routine healing Left ankle sprain Qualifiers: Encounter type: initial encounter Involved ligament of ankle: unspecified ligament Qualified Code(s): S93.402A - Sprain of unspecified ligament of left ankle, initial encounter Condition: Stable Record reviewed to determine appropriate education?: Yes Follow-Up: DIOGENES FELIPE DO [Primary Care Provider] - Prescriptions: oxyCODONE [Roxicodone] 5 mg PO TID PRN #20 tablet PRN Reason: Pain Comments: The x-ray of your left leg showed a proximal fibula fracture. Most fibula fractures are managed nonoperatively with simple immobilization. You are encouraged to wear the knee immobilizer/splint given to you until seen by orthopedics. The x-ray also suggests of fairly severe ankle sprain. Until you are seen by orthopedics you should be nonweightbearing on this leg. The x-ray of your elbow was normal. To help manage the abrasion/skin tear you can wash gently with warm soap and water each day apply any antibiotic ointment and a simple bandage. In general would like you to take Tylenol and ibuprofen for discomfort. For more severe pain a [place] Use it cautiously it will put you at increased risk for falls and constipation. Return to the ER for any new or worsening symptoms. I am prescribing a short course of narcotic pain medication for you. These are potentially dangerous and addictive medications that should be used carefully. These medications may constipate you. Take an wbdt-dcl-[id number] stool softener (docusate) twice daily with plenty of water while taking these medications. If you go 24 hours without a bowel movement, take [id number] miralax, per package instructions. Do not drink or drive while taking these medications. If you received narcotic or sedating medications while in the emergency department, do not drive for 24 hours. Store this medication in a safe, secure place and out of reach of children. It is a violation of federal law to give or sell this medication to another person or to use in a manner other than prescribed. The ED will not refill narcotic prescriptions, including prescriptions lost or stolen. To dispose of unwanted medications: 1. [facility] [address] [facility] in [place] has a medication drop box. They accept prescription medications (in pill form) Monday through Monday 9:00 a.m. to 5:00 p.m. 2. The [facility] [employer] accepts prescription medications (in pill form only) for disposal year round. Call for more information. 3. Contact the [facility] for the next [facility] sponsored prescription drug collection event. , [phone], or [phone]; Note that many narcotic pain relievers also contain Tylenol/acetaminophen. Please ensure that your total dose of acetaminophen from all sources does not exceed 3 g (3000 mg) per day. Forms: PCP List
--- NOTE | 2023-07-09 17:50 | XRAY Report ---
PROCEDURE: Ankle 2 View LT INDICATIONS: fall down stairs TECHNIQUE: 3 views of the ankle were acquired. COMPARISON: None FINDINGS: Bones: No radiographic evidence of fracture, however, there is widening of the medial ankle mortise reflecting at least ligamentous injury. Associated soft tissue swelling noted. Small ossicles adjacen t of both the medial lateral malleolus may reflect prior trauma. Soft tissues: No radiopaque foreign body IMPRESSION: Widening of the medial mortise reflects at least ligamental injury. No radiographic evidence of fract ure. Consider follow-up MR evaluation Reviewed by: Juan Brown MD on 07/09/2023 4:49 PM AKST Approved by: Juan Brown MD on 07/09/2023 4:49 PM AK Station ID: [id number]
--- NOTE | 2023-07-09 17:51 | XRAY Report ---
PROCEDURE: Knee 2 View LT INDICATIONS: fall down stairs TECHNIQUE: 3 views of the knee was obtained. COMPARISON: None FINDINGS: Bones: Oblique fracture through the distal fibular diaphysis. Evaluation joint effusion is limited b y patient positioning. Generalized decreased osseous mineralization present. Soft tissues: No radiopaque foreign body IMPRESSION: Oblique proximal fibula fracture with minimal displacement Reviewed by: Juan Brown MD on 07/09/2023 4:50 PM AKST Approved by: Juan Brown MD on 07/09/2023 4:50 PM AKST Station ID: [id number]
--- NOTE | 2023-07-09 17:51 | XRAY Report ---
PROCEDURE: Elbow 3 View LT INDICATIONS: fall down stairs TECHNIQUE: 3 views of the elbow were acquired. COMPARISON: None FINDINGS: Bones: No fractures or dislocations. No suspicious bony lesions. Soft tissues: No elbow joint effusion. No suspicious soft tissue calcifications. IMPRESSION: Unremarkable elbow radiographs Reviewed by: Juan Brown MD on 07/09/2023 4:50 PM AK Approved by: Juan Brown MD on 07/09/2023 4:50 PM AK Station ID: [id number]
--- NOTE | 2023-07-09 17:56 | XRAY Report ---
PROCEDURE: Tib/Fib LT INDICATIONS: fall down stairs TECHNIQUE: 2 views of the tibia and fibula were acquired. COMPARISON: None. FINDINGS: Bones: Oblique proximal fibular fracture with medial displacement of the distal fracture fragment. T he proximal syndesmosis is densely calcified. There is widening of the medial ankle mortise reflectin g ligamental injury. Small rounded ossicles adjacent to the medial malleolus may reflect prior injury Soft tissues: No radiopaque foreign bodies IMPRESSION: Oblique proximal tibial diaphyseal fracture. Widening of the ankle mortise reflecting ligamental injury Reviewed by: Juan Brown MD on 07/09/2023 4:55 PM AKST Approved by: Juan Brown MD on 07/09/2023 4:55 PM AK Station ID: [id number]
[2023-07-09] MEDS ORDERED: BACITRACIN ZINC OINT 1 PACKET TOP STA (18:19)
[2023-07-09 18:59] VITALS: BP 141/91; O2SAT 98
== END 2023-07-09 18:54 | disposition home or self-care (01) ==
LOC: ED 15:50
DX: S51.012A Laceration without foreign body of left elbow, initial encounter (principal); S82.232A Displaced oblique fracture of shaft of left tibia, initial encounter for closed fracture; S82.432A Displaced oblique fracture of shaft of left fibula, initial encounter for closed fracture; S93.402A Sprain of unspecified ligament of left ankle, initial encounter; W10.9XXA Fall (on) (from) unspecified stairs and steps, initial encounter; Y93.89 Activity, other specified; Y92.009 Unspecified place in unspecified non-institutional (private) residence as the place of occurrence of the external cause
CPT/HCPCS: 73080; 73560; 73590; 73600; 99284; A9270

== ENCOUNTER 2023-10-16 11:34 | Outpatient (CLI) | payer MEDICARE, OTHER ==
--- NOTE | 2023-10-16 11:13 | SLEEP CARE CONSULTATION ---
Information from patient questionnaire entered by Contreras Perez. I have reviewed and concur with the information entered by Contreras Perez. This document represents the service I personally performed and the decisions made by me, Ciarra Muir MD, [facility]. History of Present Illness Service Date and Time: 10/16/2023 1100 Previous diagnosis: Severe, Obstructive Sleep Apnea-Hypopnea Syndrome AHI: 35.3 (in 2013) Reason for follow up: annual (LAST SEEN 09/2022) Equipment type: CPAP (MOTA) Equipment obtained from: [employer] Mask style: Nasal pillows Prior sleep studies: Yes Year and Where: 2013 - [facility] Type of Sleep Study: Polysomnography HPI additional information: Mr. Alberts was diagnosed to have severe (AHI 35.3) obstructive sleep apnea- hypopnea syndrome in 2013 and returns today for his annual follow up of CPAP therapy. The patient wears Respironics Nuance nasal pillows. He reports using the [employer] Respironics DreamStation 2 nightly and all through the night. The compliance report shows usage in 365 nights out of the past 365 nights, averaging 7.6 hours a night. The > 4 hour compliance rate for the past year is 96%. He complained of nasal congestion. He has the heated humidifier set at 1 and tube heat at 0. He thinks that the pressure of 11 15 cmH2O is more comfortable than the previous lower pressure. On the CPAP therapy he notices improvement in his sleep quality, and that he wakes up feeling fresher in the morning and more awake/alert during the day. His still notices snores. The average residual AHI is 8.4 (was 5.8 the past year); and average time in large leak per day is 2 seconds. The 90th percentile pressure is 13.2 cmH2O. [employer] is his durable medical supplier. He reports having difficulty sleeping since he broke his leg in June of last year. He is still in a lot of pain. Sleep Study - Results Type of Sleep Study: Polysomnography Prior sleep studies: Yes Year and Where: 2013 - [facility] CPAP Compliance Data - Data Reviewed with Patient Average duration of nightly device use: 7HRS 33MINS 43SECS Compliance rate %: 95.9 (10/12/22-10/11/23) Current pressure setting (cmH2O): 11-15 Average residual AHI: 8.4 Subjective Initial [place] Sleepiness Scale score: 11 (in 2013) Current [place] Sleepiness Scale score: 9 (10/16/23) Allergies and Home Medications Drug allergies reviewed: Yes Home medication list reviewed: Yes Allergy and home medication list: Allergies No Known Drug Allergies Allergy (Verified 10/12/23 15:14) Review of Systems Review of systems same as previous: Yes (BROKE LEG IN JUNE 2023) Physical Exam Vital signs obtained and entered by: CONTRERAS León MA Blood Pressure: 126/78 (PER PT) Height: 6 ft (PER PT) Weight: 270 lb (PER PT) Body Mass Index: 36.6 BMI Classification: Obese Impression and Plan IMPRESSION: 1. Obstructive Sleep Apnea-Hypopnea Syndrome, severe, with the patient continuing to use his [employer] Respironics DreamStation 2 autoCPAP regularly. The residual AHI is now high, and his hears him snore through the CPAP. I will raise the pressure range. If still not adequate, I will order a manual CPAP/BiPAP titration study because he has not had one for 10 years now. PLAN: 1. Increase autoCPAP 12 - 17 cmH2O. 2. Patient to increase the heated humidifier as needed. 3. Return for follow up in two months to recheck the residual AHI. He is probably eligible for a new machine this year. Adjust device pressure to (cmH2O): 12 - 17 Follow up with Sleep Care in: 1-2 months Visit Type: Telehealth Phone Patient Location: Home Location of Provider: Office Patient agrees and consents to this telehealth visit type: Yes Patient agrees to have their insurance billed: Yes Time Spent with Patient (minutes): 15 Provider Statement: I spent 100% of the Telehealth Phone Call with the patient with greater than 50% spent counseling the patient and coordination of care.
[2023-10-16 11:19] VITALS: BP 126/78
== END 2023-10-16 11:35 | disposition home or self-care (01) ==
LOC: SC 11:34
PROVIDERS: ATTEND Internal Medicine Pulmonary Disease
DX: G47.33 Obstructive sleep apnea (adult) (pediatric) (principal); E66.9 Obesity, unspecified; Z68.36 Body mass index [BMI] 36.0-36.9, adult
CPT/HCPCS: 99442

== ENCOUNTER 2023-12-18 11:53 | Outpatient (CLI) | payer MEDICARE, OTHER ==
--- NOTE | 2023-12-18 11:29 | SLEEP CARE CONSULTATION ---
Information from patient questionnaire entered by Contreras Perez. I have reviewed and concur with the information entered by Contreras Perez. This document represents the service I personally performed and the decisions made by me, Ciarra Muir MD, [facility]. History of Present Illness Service Date and Time: 12/18/2023 1100 Previous diagnosis: Severe, Obstructive Sleep Apnea-Hypopnea Syndrome AHI: 35.3 (in 2013) Reason for follow up: other (2 MONTH F/U) Equipment type: CPAP (MOTA) Equipment obtained from: [employer] Mask style: Nasal pillows Prior sleep studies: Yes Year and Where: 2013 - [facility] Type of Sleep Study: Polysomnography HPI additional information: Mr. Alberts was diagnosed with severe (AHI 35.3) obstructive sleep apnea- hypopnea syndrome in 2013 and was called today after his autoCPAP pressure was raised from 11 15 to 12 17 cmH2O 2 months ago for an elevated residual AHI of 8.4. The patient wears Respironics Nuance nasal pillows. He reports using the [employer] Respironics DreamStation 2 nightly and all through the night. The compliance report shows usage in 60 nights out of the past 60 nights, averaging 8.1 hours a night. The > 4 hour compliance rate for the past year is 100%. He complained of nasal congestion. He thinks that the pressure of 12 - 17 cmH2O is just as comfortable. On the CPAP therapy he notices improvement in his sleep quality, and that he wakes up feeling fresher in the morning and more awake/alert during the day. His still notices snores. The average residu al AHI is 5.7 (was 8.4); and average time in large leak per day is 0 seconds. The 90th percentile pressure is 14.3 cmH2O. [employer] is his durable medical supplier. Sleep Study - Results Type of Sleep Study: Polysomnography Prior sleep studies: Yes Year and Where: 2013 - [facility] CPAP Compliance Data - Data Reviewed with Patient Average duration of nightly device use: 8HRS 3MINS 37MIN Compliance rate %: 98.3 (10/14/23-12/12/23) Current pressure setting (cmH2O): 12-17 Average residual AHI: 5.7 Subjective Initial [place] Sleepiness Scale score: 11 (in 2013) Current [place] Sleepiness Scale score: 7 (12/18/23) Allergies and Home Medications Allergy and home medication list: Allergies No Known Drug Allergies Allergy (Verified 12/14/23 09:33) Review of Systems Review of systems same as previous: Yes (NO CHANGE) Physical Exam Vital signs obtained and entered by: CONTRERAS León MA Height: 6 ft (PER PT) Weight: 280 lb (PER PT) Body Mass Index: 38.0 BMI Classification: Obese Impression and Plan IMPRESSION: 1. Obstructive Sleep Apnea-Hypopnea Syndrome, severe, with the patient continuing to use his [employer] Respironics DreamStation 2 autoCPAP regularly. The residual AHI is back down with the higher autoCPAP setting. No further adjustment is necessary. PLAN: 1. Leave autoCPAP at 12 17 cmH2O. Turn off the ramp if he does not like the low pressure after he goes to the bathroom during the night. 2. Patient to increase the heated humidifier as needed. 3. Return for a follow up in a year or earlier if there is any problem. Continue with device pressure at (cmH2O): 12 - 17 Follow up with Sleep Care in: 1 year Visit Type: Telehealth Phone Patient Location: Home Location of Provider: Office Patient agrees and consents to this telehealth visit type: Yes Patient agrees to have their insurance billed: Yes Time Spent with Patient (minutes): 15 Provider Statement: I spent 100% of the Telehealth Phone Call with the patient with greater than 50% spent counseling the patient and coordination of care.
== END 2023-12-18 11:54 | disposition home or self-care (01) ==
LOC: SC 11:53
PROVIDERS: ATTEND Internal Medicine Pulmonary Disease
DX: G47.33 Obstructive sleep apnea (adult) (pediatric) (principal)
CPT/HCPCS: 99442

== ENCOUNTER 2023-12-30 09:38 | Emergency (ER) | payer MEDICARE, OTHER ==
[2023-12-30 10:28] LABS: BILIRUBIN,URINE NEGATIVE (NEGATIVE); GLUCOSE, URINE (UA) NEGATIVE (NEGATIVE); KETONES,URINE (UA) NEGATIVE (NEGATIVE); LEUKOCYTE ESTERASE, URINE NEGATIVE (NEGATIVE); NITRITE,URINE NEGATIVE (NEGATIVE); OCCULT BLOOD,URINE LARGE (NEGATIVE); PH,URINE 5.5 PH (5.0-7.5); PROTEIN,URINE 30 mg/dL (NEGATIVE); UROBILINOGEN,URINE 0.2 (NORMAL) E.U./dL (NORMAL)
[2023-12-30 10:30] LABS: CLARITY,URINE SL. CLOUDY (CLEAR)
[2023-12-30 10:35] LABS: BACTERIA,URINE Few /HPF (None Seen); CASTS, URINE 3-5 Hyaline Casts /LPF; CRYSTALS,URINE 3-5 Calcium Oxalate /LPF; RBC,URINE TNTC /HPF (0-5); SQUAMOUS EPITHELIAL CELL,UR FEW Squamous (<= Few); WBC,URINE 0-3 /HPF (0-3)
[2023-12-30 11:01] LABS: ALBUMIN 4.3 g/dL (3.2-5.5); ALBUMIN/GLOBULIN RATIO 1.3 (1.0-2.2); BILIRUBIN,TOTAL 0.6 mg/dL (0.2-1.0); CALCIUM 9.9 mg/dL (8.5-10.3); CREATININE 1.2 mg/dL (0.6-1.3); POTASSIUM 4.7 mmol/L (3.5-4.5); TOTAL PROTEIN 7.5 g/dL (6.4-8.9)
--- NOTE | 2023-12-30 11:29 | ED Physician Documentation ---
PD HPI ABD PAIN - Stated complaint Stated Complaint: RT ABD/BACK PX - Chief complaint Chief Complaint: Abd Pain - History obtained from History obtained from: Patient - Additional information Additional information: 77-year-old gentleman with history of hypertension, aortic dilatation, BPH and kidney stones presents with right flank and abdominal pain. He had a remote appendectomy. About a week ago he had very dark urine which cleared up after some doxycycline. He had no pain or other symptoms then. This morning he had severe right flank pain and right abdominal pain which is better after oxycodone taken at home. He did have dark urine this morning but not as dark as it was last week. He states he is due for having his aorta checked and would like to go ahead with CT angiography today after we discussed the likely need for CT to evaluate his flank pain for likely renal colic. PD PAST MEDICAL HISTORY - Past Medical History Past Medical History: Yes Cardiovascular: Hypertension, High cholesterol Respiratory: CPAP use : Benign prostate hypertrophy, Kidney stones Musculoskeletal: Chronic back pain - Past Surgical History Past Surgical History: Yes General: Appendectomy Ortho: Knee replacement, Carpal Tunnel surgery, Spine surgery - Present Medications Home Medications: Ambulatory Orders Medication Instructions Recorded Confirmed Telmisartan [Micardis] 1 mg PO DAILY 04/09/15 12/30/23 Triamcinolone Acetonide [Nasacort] 10.8 ml NS QPM 04/09/15 12/30/23 Acetaminophen [Pain Relief Extra 2 tab PO BID 10/10/22 12/30/23 Strength] Ascorbic Acid [Vitamin C] See Rx Instructions .ROUTE .COMPLEX 10/10/22 12/30/23 Cholecalciferol [Vitamin D3] See Rx Instructions .ROUTE .COMPLEX 10/10/22 12/30/23 Licopene 10/10/22 Magnesium See Rx Instructions .ROUTE .COMPLEX 10/10/22 12/30/23 Tamsulosin HCl [Flomax] 1 tab PO DAILY 10/10/22 12/30/23 Zinc Gluconate [Zinc] See Rx Instructions .ROUTE .COMPLEX 10/10/22 12/30/23 oxyCODONE [Roxicodone] 5 mg PO TID PRN #20 tablet 07/09/23 12/30/23 Atorvastatin Calcium 1 tab PO DAILY 12/30/23 12/30/23 oxyCODONE [Roxicodone] 5 mg PO Q4-6H PRN #15 tablet 12/30/23 - Allergies Allergies/Adverse Reactions: Allergies Allergy/AdvReac Type Severity Reaction Status Date / Time No Known Drug Allergies Allergy Verified 12/30/23 10:08 - Social History Does the pt smoke?: No Smoking Status: Never smoker Does the pt drink ETOH?: No Does the pt have substance abuse?: No - Immunizations Immunizations are current?: Yes - POLST Patient has POLST: No PD ED PE NORMAL - Vitals Vital signs reviewed: Yes - General General: Alert and oriented X 3, No acute distress - Respiratory Respiratory: No respiratory distress - Abdomen Abdomen: Soft, Non tender - Back Back: No CVA TTP - Neuro Neuro: Alert and oriented X 3 Results - Vitals Vitals: Vital Signs - 24 hr 12/30/23 12/30/23 10:02 12:08 Temperature 36.6 C Heart Rate 84 81 Respiratory 20 20 Rate Blood Pressure 159/78 H 136/77 H O2 Saturation 97 94 Oxygen O2 Source Room air - Labs Labs: Laboratory Tests 12/30/23 12/30/23 12/30/23 10:10 10:26 11:35 WBC 12.5 H RBC 4.99 Hgb 15.3 Hct 46.9 MCV 94.0 MCH 30.7 MCHC 32.6 RDW 13.2 Plt Count 217 MPV 9.6 Neut # (Auto) 10.0 H Lymph # (Auto) 1.7 [place] # (Auto) 0.8 Eos # (Auto) 0.0 Baso # (Auto) 0.1 Absolute Nucleated RBC 0.00 Nucleated RBC % 0.0 Sodium 137 Potassium 4.7 H Chloride 107 Carbon Dioxide 19 L Anion Gap 11.0 BUN 14 Creatinine 1.2 Estimated GFR (MDRD) 59 L Glucose 125 H Calcium 9.9 Total Bilirubin 0.6 AST 26 ALT 18 Alkaline Phosphatase 76 Total Protein 7.5 Albumin 4.3 Globulin 3.2 Albumin/Globulin Ratio 1.3 Lipase 17 Urine Color BROWN Urine Clarity SL. CLOUDY Urine pH 5.5 Ur Specific [place] >=1.030 H Urine Protein 30 H Urine Glucose (UA) NEGATIVE Urine Ketones NEGATIVE Urine Occult Blood LARGE H Urine Nitrite NEGATIVE Urine Bilirubin NEGATIVE Urine Urobilinogen 0.2 (NORMAL) Ur Leukocyte Esterase NEGATIVE Urine RBC TNTC H Urine WBC 0-3 Ur Squamous Epith Cells FEW Squamous Urine Crystals 3-5 Calcium Oxalate Urine Bacteria Few Urine Casts 3-5 Hyaline Casts Ur Microscopic Review INDICATED Urine Culture Comments NOT INDICATED - Rads (name of study) CT angiography of the chest and abdomen with 4.2 cm aortic aneurysm, coronary calcifications, 4 mm right ureteral stone Relevant Findings:: Final report received, EMP independent interpretation of test PD Medical Decision Making - ED course ED course: He presents with symptoms consistent with renal colic. He has had kidney stones before. Workup in the emergency department demonstrates mild nonspecific leuko cytosis at 12, unremarkable CMP, and urine with blood. He requested CT angiography of the chest to evaluate his known thoracic aorta aneurysm, this was done and it was 4.2 cm. Initial read of CT abdomen not showing renal colic but asked radiologist to review has I saw stone in the right ureter and he agrees. Patient was pretty much pain-free here but did request an oxycodone prior to disposition. Multiple incidental findings on CT were discussed with patient and and also given copies of the radiology reads. Departure - Departure Disposition: Home, Self Care Clinical Impression: Renal colic, Aortic aneurysm Condition: Good Record reviewed to determine appropriate education?: Yes Instructions: ED Stone Renal W Colic Prescriptions: oxyCODONE [Roxicodone] 5 mg PO Q4-6H PRN #15 tablet PRN Reason: Pain Comments: You were seen today for a kidney stone. There is a 4 mm kidney stone in the right ureter. Given the size we expected to pass on its own, but follow-up with your doctor for discussion regarding referral to urology. As you request we also checked the size of your aortic aneurysm. It is 4.2 cm. I sent your prescription electronically to the [facility]. Call your doctor to arrange a follow-up appointment, make the next available appointment. In the interim, return anytime if worse or if new symptoms develop. I am prescribing a short course of narcotic pain medication for you. These are potentially dangerous and addictive medications that should be used carefully. These medications may constipate you. Take an velt-pnm-hsqeljh stool softener (docusate) twice daily with plenty of water while taking these medications. If you go 24 hours without a bowel movement, take ndaf-cqx-ohquxne miralax, per package instructions. Do not drink or drive while taking these medications. If you received narcotic or sedating medications while in the emergency department, do not drive for 24 hours. Store this medication in a safe, secure place and out of reach of children. It is a violation of federal law to give or sell this medication to another person or to use in a manner other than prescribed. The ED will not refill narcotic prescriptions, including prescriptions lost or stolen. To dispose of unwanted medications: 1. [facility] provides a [facility] box for medication in pill form only (no liquids) 8:00 am to 4:30 p.m. Monday-Monday in the lobby of the [facility], [address] [place] [address]. Empty pills into ziplock bag before disposal. Call [phone] for information. 2.[employer] is a free service available to all [facility] residents. Go to [email or web address] Note that many narcotic pain relievers also contain Tylenol/acetaminophen. Please ensure that your total dose of acetaminophen from all sources does not exceed 3 g (3000 mg) per day. Forms: PCP List
[2023-12-30] MEDS ORDERED: iohexoL-300 100 ML VIAL ONE (11:33)
[2023-12-30 11:40] LABS: BASOPHILS # (AUTO) 0.1 10^3/uL (0.0-0.1); BASOPHILS % (AUTO) 0.4 %; HCT - HEMATOCRIT 46.9 % (42.0-52.0); HGB - HEMOGLOBIN 15.3 g/dL (14.0-18.0); LYMPHOCYTES # (AUTO) 1.7 10^3/uL (1.5-3.5); LYMPHOCYTES % (AUTO) 13.3 %; MEAN CORPUSCULAR HEMOGLOBIN 30.7 pg (27.0-31.0); MEAN CORPUSCULAR HGB CONC 32.6 g/dL (32.0-36.0); MEAN PLATELET VOLUME 9.6 fL (7.4-11.4); MONOCYTES # (AUTO) 0.8 10^3/uL (0.0-1.0); PLT - PLATELET COUNT 217 10^3/uL (130-450); RED BLOOD COUNT 4.99 10^6/uL (4.70-6.10); RED CELL DISTRIBUTION WIDTH 13.2 % (12.0-15.0); WHITE BLOOD COUNT 12.5 x10^3/uL (4.8-10.8)
[2023-12-30] MEDS: iohexoL-300 100 ML VIAL IVP ONE (12:00)
--- NOTE | 2023-12-30 12:20 | CT Report ---
PROCEDURE: Angio Chest INDICATIONS: flank pain, known aorta dilatation CONTRAST: 100ml omni 300 TECHNIQUE: After the administration of intravenous contrast, 2 mm axial images were acquired from the pulmonary apices to the posterior costophrenic angles during the arterial phase. In addition, 1 mm lung kernel and 5 mm soft tissue kernel reconstructions were performed. 3-dimensional coronal oblique maximum int ensity projection (MIP) reformats, 8 mm axial MIP, and 5 mm coronal and sagittal MPR reformats were t hen performed through the thorax. For radiation dose reduction, the following was used: automated exp osure control, adjustment of mA and/or kV according to patient size. COMPARISON: Correlation is made with the accompanying imaging. FINDINGS: Image quality: There is streak artifact seen through the level of the shoulders. Large vessels: The ascending thoracic aorta is mildly aneurysmal at 4.2 centimeters transversely. The aortic arch is also mildly aneurysmal at 3.7 cm transversely. The descending thoracic aorta measures 3.5 cm at the level of the right main pulmonary artery. No periaortic inflammatory change can be see n. No dissection flap is seen. No filling defects within the opacified pulmonary arteries, accounting for motion and contrast timing. Lungs and pleura: No consolidation. No pleural effusions. No pneumothorax. No suspicious pulmonary n odules which require follow up. Mediastinum: Mild to moderate coronary artery calcification is seen. Heart size is normal. No pericar dial effusion. No mediastinal adenopathy by size criteria. A small hiatal hernia is incidentally not ed. Chest wall and lower neck: Thyroid is unremarkable. No axillary or supraclavicular adenopathy by size . Bones: No aggressive osseous abnormality. Age-appropriate degenerative changes are seen. Upper Abdomen: Unremarkable. IMPRESSION: No pulmonary embolus. Mildly aneurysmal thoracic aorta, without findings of acute abnormality. No dissection flaps can be s een. Clear lungs. Additional findings: Mild to moderate coronary artery calcification Small hiatal hernia Reviewed by: Edwin Humphreys MD on 12/30/2023 11:19 AM MARK Approved by: Edwin Humphreys MD on 12/30/2023 11:19 AM MARK Station ID: [email or web address]
--- NOTE | 2023-12-30 12:24 | CT Report ---
PROCEDURE: Angio Abdomen/Pelvis INDICATIONS: R flank pain CONTRAST: 100ml omni 300 TECHNIQUE: After the administration of intravenous contrast, 2.5 mm thick sections acquired from the diaphragm t o the symphysis. 10 mm maximum-intensity projection (MIP) reformats were then acquired. For radiati on dose reduction, the following was used: automated exposure control, adjustment of mA and/or kV ac cording to patient size. COMPARISON: Correlation is made with the accompanying imaging. FINDINGS: Image quality: Excellent. Aorta: The abdominal aorta demonstrates normal caliber. No dissection flaps can be seen. Atheroscler otic calcification is seen. Mesenteric arteries: Incidental note is made of separate origins of the main hepatic artery and in t he main splenic artery, without a combined celiac trunk. The superior and inferior mesenteric arterie s appear patent. Right pelvic arteries: Normal. Left pelvic arteries: Normal. Extravascular soft tissues: Lung bases are clear. Heart size is normal. Liver and spleen are millie l in size and enhancement. Mild diffuse liver fatty infiltration can be seen. Gallbladder appears wit hin normal limits. Biliary system is non dilated. Pancreas enhances normally. No adrenal nodules. Kidneys are normal in size and enhancement, without hydronephrosis. Non opacified bowel loops are n ormal in wall thickness and caliber. Diverticulosis can be seen, without ivory findings of active div erticulitis. No free fluid or air. No retroperitoneal or mesenteric adenopathy. The prostate is enl arged, measuring 7.6 cm transversely. No ventral hernias. Mild fat-containing bilateral inguinal randall ias are seen, right larger than left. No suspicious bony lesions. No vertebral body compression frac tures. At least moderate lumbar spine degenerative change is seen. IMPRESSION: No acute abnormality can be seen of the aorta. Negative for hydronephrosis. Additional findings: Mild fatty liver infiltration Separate origins of the main hepatic artery and main splenic artery At least moderate lumbar spine degenerative change Diverticulosis, without findings of active diverticulitis. Enlarged prostate Mild bilateral fat-containing inguinal hernias Reviewed by: Edwin Humphreys MD on 12/30/2023 11:23 AM MARK Approved by: Edwin Humphreys MD on 12/30/2023 11:23 AM [place]KS Station ID: [email or web address]
[2023-12-30] MEDS: oxyCODONE 5 MG TABLET PO STA (13:18)
[2023-12-30 13:33] VITALS: BP 135/72; O2SAT 96
== END 2023-12-30 13:24 | disposition home or self-care (01) ==
LOC: ED 09:38
DX: N20.0 Calculus of kidney (principal); R31.9 Hematuria, unspecified; I71.20 Thoracic aortic aneurysm, without rupture, unspecified; Z87.442 Personal history of urinary calculi
CPT/HCPCS: 36415; 71275; 74174; 80053; 81001; 83690; 85025; 99284; A9270; Q9967; 81003; 87086

== ENCOUNTER 2024-05-16 09:58 | Day surgery (SDC) | payer MEDICARE, OTHER ==
[2024-05-16] MEDS: PROPARACAINE 0.5% OPHTH DROPS 15 ML ONE (10:23)
[2024-05-16] MEDS: LACTATED RINGERS 1,000 ML IV ONE ×2 (10:23→12:21)
[2024-05-16] MEDS: KETOROLAC TROMETHAMINE 0.5% OPHTH DROPS 5 ML ONE (10:23)
[2024-05-16] MEDS: CYCLOPENTOLATE 1% OPHTH DROPS 2 ML ONE (10:24)
[2024-05-16] MEDS: PHENYLEPHRINE 2.5% OPHTH 2 ML DROPS ONE (10:24)
--- NOTE | 2024-05-16 11:38 | ANESTHESIA ---
Pre-Anesthesia VS, & Labs - Diagnosis RIGHT EYE CATARACT - Procedure RIGHT PHACO/IOL Vital Signs: Temp Pulse Resp BP Pulse Ox O2 Flow Rate 36.2 C L 51 L 16 127/68 97 0 05/16/24 10:24 05/16/24 10:24 05/16/24 10:24 05/16/24 10:24 05/16/24 10:24 05/16/24 10:24 Height: 6 ft Weight (kg): 129.9 kg Body Mass Index: 38.8 BMI Classification: Obese - NPO >8 hours Home Medications and Allergies Home Medications: Ambulatory Orders Fluticasone [Flonase] See Rx Instructions .ROUTE .COMPLEX 05/15/24 Metoprolol Succinate [Toprol Xl] 12.5 mg PO BID 05/15/24 Multivit-Min/FA/Lycopen/Lutein [Senior Tabs] 1 each PO DAILY 05/15/24 Telmisartan [Micardis] 1 mg PO DAILY 04/09/15 Acetaminophen [Pain Relief Extra Strength] 2 tab PO HS 10/10/22 Ascorbic Acid [Vitamin C] See Rx Instructions .ROUTE .COMPLEX 10/10/22 Cholecalciferol [Vitamin D3] See Rx Instructions .ROUTE .COMPLEX 10/10/22 Magnesium See Rx Instructions .ROUTE .COMPLEX 10/10/22 Tamsulosin HCl [Flomax] 1 tab PO DAILY 10/10/22 Zinc Gluconate [Zinc] See Rx Instructions .ROUTE .COMPLEX 10/10/22 Fluticasone [Flonase] See Rx Instructions .ROUTE .COMPLEX 05/15/24 Metoprolol Succinate [Toprol Xl] 12.5 mg PO BID 05/15/24 Multivit-Min/FA/Lycopen/Lutein [Senior Tabs] 1 each PO DAILY 05/15/24 Allergies/Adverse Reactions: Allergies Allergy/AdvReac Type Severity Reaction Status Date / Time No Known Drug Allergies Allergy Verified 05/16/24 10:29 Anes History & Medical History - Anesthetic History Anesthesia Complications: reports: No previous complications - Medical History Cardiovascular: reports: Hypertension (HX SVT; LAST EPISODE 1 MONTH AGO, NOW ON METOPROLOL; HR 50S, NO EPISODES SINCE; DENIES IA/CP/SOB), High cholesterol, Murmur, Arrhythmia, Other Pulmonary: reports: CPAP use, Other Gastrointestinal: reports: Colon polyps Urinary: reports: Benign prostate hypertrophy, Kidney stones Musculoskeletal: reports: Rheumatoid arthritis, Chronic back pain Skin: reports: None Smoking Status: Never smoker Psychosocial: reports: No issues indicated - Surgical History General: reports: Appendectomy Orthopedic: reports: Knee replacement, Carpal Tunnel surgery, Spine surgery Results - EKG Results EKG Comparison: Reviewed EKG Exam General: Alert, Oriented x3 Dental: WNL Mouth Openin Fingerbreadth Neck Mobility: Normal Mallampati classification: II Thyromental Distance: 4-6 cm Respiratory: Lungs clear Cardiovascular: Regular rate Plan Anesthesia Type: MAC Consent for Procedure(s) Verified and Reviewed: Yes Code Status: Attempt Resuscitation ASA classification: 3-Severe systemic disease Is this case an emergency?: No
[2024-05-16] MEDS ORDERED: BSS/LIDOCAINE/EPINEPHRINE 1 ML VIAL ONE (11:52)
[2024-05-16] MEDS ORDERED: TRIAMCIN/MOXIFLOX OPHTHALMIC 0.6 ML VIAL IO ONE (11:52)
[2024-05-16] MEDS ORDERED: TIMOLOL 0.5% OPHTH DROPS ONE (11:52)
[2024-05-16] MEDS ORDERED: BRIMONIDINE 0.2% OPHTH DROPS 5 ML ONE (11:52)
[2024-05-16] MEDS ORDERED: MIDAZOLAM 2 MG/2 ML VIAL ONE (11:55)
[2024-05-16 12:42] VITALS: O2SAT 95
[2024-05-16 12:55] VITALS: BP 118/68
--- NOTE | 2024-05-16 13:14 | ANESTHESIA POST OP EVALUATION ---
Anesthesia Post Eval - Post Anesthesia Eval Vitals: Last Vital Signs Temp 36.5 C 05/16/24 12:45 Pulse 50 L 05/16/24 12:45 Resp 16 05/16/24 12:45 BP 118/68 05/16/24 12:45 Pulse Ox 95 05/16/24 12:45 O2 Flow Rate 0 05/16/24 10:24 CV Function Including HR & BP: Stable Pain Control: Satisfactory Nausea & Vomiting: Negative Mental Status: Baseline Respiratory Status: Airway Patent Hydration Status: Satisfactory Anesthesia Complications: None
== END 2024-05-16 09:59 | disposition home or self-care (01) ==
LOC: SDS 09:58
PROVIDERS: ATTEND Ophthalmology
DX: H25.11 Age-related nuclear cataract, right eye (principal); Z53.8 Procedure and treatment not carried out for other reasons
CPT/HCPCS: A9270; J3490; J7120

== ENCOUNTER 2024-05-23 09:00 | Day surgery (SDC) | payer MEDICARE, OTHER ==
[2024-05-23] MEDS: PROPARACAINE 0.5% OPHTH DROPS 15 ML ONE (09:30)
[2024-05-23] MEDS: CYCLOPENTOLATE 1% OPHTH DROPS 2 ML ONE (09:30)
[2024-05-23] MEDS: PHENYLEPHRINE 2.5% OPHTH 2 ML DROPS ONE (09:30)
[2024-05-23] MEDS: KETOROLAC TROMETHAMINE 0.5% OPHTH DROPS 5 ML ONE (09:30)
[2024-05-23] MEDS ORDERED: MIDAZOLAM 2 MG/2 ML VIAL ONE (10:02)
--- NOTE | 2024-05-23 10:16 | ANESTHESIA ---
Pre-Anesthesia VS, & Labs - Diagnosis right eye nuclear cataract - Procedure right eye cataract extraction with IOL implant Vital Signs: Temp Pulse Resp BP Pulse Ox O2 Flow Rate 36.4 C L 52 L 14 153/70 H 96 05/23/24 09:37 05/23/24 09:37 05/23/24 09:37 05/23/24 09:37 05/23/24 09:37 Height: 6 ft Weight (kg): 129.1 kg Body Mass Index: 38.6 BMI Classification: Obese - NPO >8 hours Home Medications and Allergies Home Medications: Ambulatory Orders Non Formulary 1 tab PO DAILY 05/22/24 Non Formulary 1 tab PO DAILY 05/22/24 Non Formulary 1 tab PO DAILY 05/22/24 Telmisartan [Micardis] 40 mg PO DAILY 04/09/15 Acetaminophen [Pain Relief Extra Strength] 2 tab PO HS 10/10/22 Ascorbic Acid [Vitamin C] 1,000 mg PO DAILY 10/10/22 Cholecalciferol [Vitamin D3] See Rx Instructions .ROUTE .COMPLEX 10/10/22 Magnesium 1 tab PO DAILY 10/10/22 Zinc Gluconate [Zinc] See Rx Instructions .ROUTE .COMPLEX 10/10/22 Fluticasone [Flonase] 1 inh INH BID 05/15/24 Metoprolol Succinate [Toprol Xl] 12.5 mg PO BID 05/15/24 Multivit-Min/FA/Lycopen/Lutein [Senior Tabs] 1 each PO DAILY 05/15/24 Non Formulary 1 tab PO DAILY 05/22/24 Non Formulary 1 tab PO DAILY 05/22/24 Non Formulary 1 tab PO DAILY 05/22/24 Allergies/Adverse Reactions: Allergies Allergy/AdvReac Type Severity Reaction Status Date / Time No Known Drug Allergies Allergy Verified 05/23/24 09:45 Anes History & Medical History - Anesthetic History Anesthesia Complications: reports: No previous complications - Medical History Cardiovascular: reports: Hypertension, Arrhythmia, Other Pulmonary: reports: Sleep apnea, CPAP use, Other Gastrointestinal: reports: Colon polyps Urinary: reports: Benign prostate hypertrophy, Kidney stones Musculoskeletal: reports: Rheumatoid arthritis, Chronic back pain Skin: reports: None Smoking Status: Never smoker - Surgical History General: reports: Appendectomy, Colonoscopy Eyes Ears Nose Throat (EENT): reports: Cataracts Urologic: reports: Ureterolithotomy (stones) Orthopedic: reports: Knee replacement, Shoulder arthroplasty, Carpal Tunnel s urgery, Spine surgery, Other Exam General: Alert, Oriented x3, Cooperative, No acute distress Dental: WNL Mouth Openin Fingerbreadth Neck Mobility: Normal Mallampati classification: III Thyromental Distance: 4-6 cm Mental/Cognitive Status: Alert/Oriented X3, Normal for patient Plan Anesthesia Type: MAC Consent for Procedure(s) Verified and Reviewed: Yes Code Status: Attempt Resuscitation ASA classification: 3-Severe systemic disease Is this case an emergency?: No
[2024-05-23] MEDS ORDERED: EPINEPHrine 1 MG/ML AMP ONE (10:17)
[2024-05-23] MEDS ORDERED: TRIAMCIN/MOXIFLOX OPHTHALMIC 0.6 ML VIAL IO ONE (10:18)
[2024-05-23] MEDS ORDERED: BSS/LIDOCAINE/EPINEPHRINE 1 ML VIAL ONE (10:18)
[2024-05-23] MEDS ORDERED: TIMOLOL 0.5% OPHTH DROPS ONE (10:18)
[2024-05-23] MEDS ORDERED: BRIMONIDINE 0.2% OPHTH DROPS 5 ML ONE (10:18)
[2024-05-23] MEDS: EPINEPHrine 1 MG/ML AMP IR ONE (10:21)
[2024-05-23] MEDS: BRIMONIDINE 0.2% OPHTH DROPS 5 ML OPTH ONE (10:21)
[2024-05-23] MEDS: BSS/LIDOCAINE/EPINEPHRINE 1 ML SYRINGE IO ONE (10:22)
[2024-05-23] MEDS: TIMOLOL 0.5% OPHTH DROPS OPTH ONE (10:22)
[2024-05-23] MEDS: TRIAMCIN/MOXIFLOX OPHTHALMIC 0.6 ML VIAL IO ONE (10:23)
[2024-05-23] MEDS: VANCOMYCIN OPHTH (TOPICAL) 10 MG/ML SYRINGE TOP ONE (10:23)
[2024-05-23] MEDS: PROPARACAINE 0.5% OPHTH DROPS 15 ML EACHEYE ONE (10:23)
[2024-05-23] MEDS: LACTATED RINGERS 1,000 ML IV ONE (10:59)
--- NOTE | 2024-05-23 11:06 | OPERATIVE REPORT ---
Operative Report - Other Other Information/Narrative: Date of Surgery: 05/23/24 Preop Dx: Visually significant cataract right eye. This was the first cataract surgery. Postop Dx: Same Procedure: Phacoemulsification with posterior chamber toric intraocular lens implant right eye Surgeon: Dr. Rashaun Warren Anesthesia: Monitored anesthesia care Complications: None Operative Indications: This is a 78-year-old M with progressive vision loss in the right eye due to 3+ nuclear sclerotic and vacuolar cataract. Best cor rected visual acuity was 20/40 with glare to light perception vision in the right eye. Indications for surgery were: - Overall decrease in vision - Difficulty seeing words on a computer screen - Difficulty reading - Difficulty seeing words, closed captions, or game scores on TV - Difficulty seeing street signs - Difficulty driving in low light or at night - Difficulty driving at night because of headlights from other vehicles - Difficulty with glare or bright lights in any situation - Difficulty tracking a golf ball - Decreased acuity with firearms The patient was consented at length concerning the risks and benefits of cataract surgery after which the patient expressed a desire to proceed with surgery. Operative Procedure: The patients cornea was marked in the pre-surgical area to indicate the axis for the toric intraocular lens. The patient was taken into OR#3 and placed under monitored anesthesia care. A surgical time-out was conducted confirming correct patient, correct procedure, and correct surgical site. The patient was given topical anesthesia and then prepped and draped in the usual sterile fashion. The eye was entered at the 6 and 3 oclock positions. Intracameral Shugarcaine was injected into the anterior chamber followed by a dispersive viscoelastic. A continuous-tear curvilinear capsulorhexis was performed. The nucleus was hydrodissected and phacoemulsified. The cortex was evacuated using automated infusion and aspiration. A cohesive viscoelastic was injected into the capsular bag and a 20.5 diopter toric int raocular lens was inserted into the bag and rotated to axis 072. Infusion and aspiration were used to evacuate the viscoelastic materials from the eye and the IOL was verified to remain on axis. The wounds were hydrated and the eye inflated to physiologic pressure using balanced salt solution. Approximately 0.25ml of a mixture of triamcinolone and moxifloxacin was injected trans- sclerally into the vitreous in the inferotemporal quadrant using a 30 gauge cannula. An additional 0.25ml of a mixture of triamcinolone and moxifloxacin was injected subconjunctivally in the superior quadrant for infection and inflammation prophylaxis. Wound integrity was checked with Weck-Desiree sponges and the IOL axis was once again verified to be on the correct axis. The patient was taken from the operating room in good condition and given post-op instructions.
[2024-05-23 11:15] VITALS: BP 128/66; O2SAT 94
--- NOTE | 2024-05-23 12:00 | ANESTHESIA POST OP EVALUATION ---
Anesthesia Post Eval - Post Anesthesia Eval Vitals: Last Vital Signs Temp 37.5 C 05/23/24 10:59 Pulse 52 L 05/23/24 11:09 Resp 23 05/23/24 11:09 BP 128/66 05/23/24 11:09 Pulse Ox 94 05/23/24 11:09 O2 Flow Rate CV Function Including HR & BP: Stable Pain Control: Satisfactory Nausea & Vomiting: Negative Mental Status: Baseline Respiratory Status: Airway Patent Hydration Status: Satisfactory Anesthesia Complications: None
== END 2024-05-23 09:01 | disposition home or self-care (01) ==
LOC: SDS 09:00
PROVIDERS: ATTEND Ophthalmology
DX: H25.11 Age-related nuclear cataract, right eye (principal); I10 Essential (primary) hypertension; G47.30 Sleep apnea, unspecified; N40.0 Benign prostatic hyperplasia without lower urinary tract symptoms; E66.9 Obesity, unspecified; Z68.38 Body mass index [BMI] 38.0-38.9, adult; Z79.899 Other long term (current) drug therapy
CPT/HCPCS: 66984; A9270; J3490; J7120; V2632; V2787